=== PATIENT | female | born 1945 | race Hispanic/Latino ===

== ENCOUNTER 2023-09-13 11:48 | Emergency (ER) | payer OTHER ==
--- OUTSIDE RECORDS SUMMARY | 2023-09-13 11:53 | XMS REPORT | Continuity of Care Document ---
:1945 Author Organization [facility] t Address [address] [facility] [address] [place] [id number] Care Team Providers Name Role Phone Mary Patricio Attending Clinician Dulce Maria Pitts MD Attending Clinician Carolyne Mccall MD Attending Clinician Dalia Diaz MD Attending Clinician DALIA DIAZ Attending Clinician Unavailable NELSON STILES Attending Clinician Unavailable FARAZ MILES Attending Clinician Unavailable JUAN KEYS Attending Clinician Unavailable Darlene Scanlon MD Attending Clinician Valorie iVgil Attending Clinician Payam Faye MD Attending Clinician CAROLYNE MCCALL Attending Clinician Unavailable MARY PATRICIO Attending Clinician Unavailable DULCE MARIA PITTS Admitting Clinician Unavailable Payers Payer Name Policy Type Policy Number Effective Date Expiration Date S tani [employer] MEDICARE [id number] 2022 ADV 00:00:00 Problems Condition Condition Condition Status Onset Resolution Last Treating Co mments Source Name Details Category Date Date Treatment Clinician Date Hiatal Hiatal Disease Active 2022-[address] [facility] [address] [facility] 0[facility]13 [facility] Acute Acute Disease Active [facility] respirator respirator Lupe kes y y Medical insufficie insufficie Ce nter ncy, ncy, postoperat postoperat michael michael Primary Primary Disease Active [facility] hypertensi hypertensi [facility] kes [facility] Allergies, Adverse Reactions, Alerts Allergy Allergy Status Severity Reaction(s) Onset Inactive Treating Comm ents Source Name Type Date Date Clinician PENICILL Allergy Active 2022-[address] IN 0-13 [facility] 00 Center Penicill Propensi Active 2022-[address] in ty to 0-13 ed/dizzy [facility] adverse 00:00: Medical reaction 00 Center s Social History Social Habit Start Date Stop Date Quantity Comments Source History [facility] Non-Med Medical [facility] Alcohol intake 2023-09-04 2023-09-04 Ex-drinker [facility] 00:00:00 00:00:00 (finding) Medical Center Exposure to 2023-08-21 2023-08-[address] [facility] SARS-CoV-2 (event) 00:00:00 00:51:00 Medica l Center History [facility] 2023-08-31 2023-08-[address] [facility] Transport Med 00:00:00 00:00:[address] [facility] 2023-08-31 2023-08-[address] [facility] Housing Unable to 00:00:00 00:00:00 Medical Center Pay History [facility] 2023-08-31 2023-08-[address] [facility] Housing Places 00:00:00 00:00:00 Medical Ce nter Lived History [facility] 2023-08-31 2023-08-[address] [facility] Housing Homeless 00:00:00 00:00:00 Medical Center Last Year Tobacco use and 2023-08-31 2023-08-[address] [facility] exposure 00:00:00 00:00:00 non-user Medical Center Sex Assigned At [address] [address] Lupe kes 00:00:00 00:00:00 Medical Center Smoking Status Start Date Stop Date Source Never smoked tobacco [facility] Medications Ordered Filled Start Stop Current Ordering Indication Dosage Frequency Signature Comments Components Source Medication Medication Date Date Medication? Clinician (SIG) Name Name citalopram 2022-11 Yes 10mg QD Take 1 [facility] (CeleXA) 10 0-18 tablet (10 Lupe kes MG tablet 18:15: mg total) Med ical 13 by mouth Center daily. simethicone 2022-11- Yes 80mg Take [address] (MYLICON) 0-18 10- tablet (80 Adonay es 80 MG 00:00: 23:59 mg total) Medica l chewable 00 :00 by mouth Center tablet every 8 (eight) hours as needed for Flatulence for up to 10 days. traMADoL 2022-11- Yes 50mg Take [address] (ULTRAM) 50 0-18 - tablet (50 L ukes mg tablet 00:00: 23:59 mg total) Me dical 00 :00 by mouth 2 Center (two) times daily as needed for up to 10 days. Max Daily Amount: 100 mg promethazin 2022-11- Yes 25mg Take [address] [facility] [facility] e 0-18 - tablet (25 [facility] (PHENERGAN) 00:00: 23:59 mg total) Medical 25 MG 00 :00 by mouth 2 Center tablet (two) times daily as needed for Nausea for up to 10 days. ondansetron 2022-11- No 4mg Take [address] (ZOFRAN) 4 0-18 - tablet (4 Adonay es MG tablet 00:00: 00:00 mg total) Me dical 00 :00 by mouth 2 Center (two) times daily as needed for Nausea for up to 10 days. metoprolol Yes 25mg QD Take 1 [facility] t succinate 9-08 tablet (25 Luke s (TOPROL-XL) 00:00: mg total) M edical 25 MG 24 hr 00 by mouth Cent er tablet daily. lisinopril- 2022- No 1{tbl} QD Take [address] hydroCHLORO 8-03 10-18 tablet by Lupe radha thiazide 00:00: 00:00 mouth Medical (PRINZIDE,Z 00 :00 daily. [place] ESTORETIC) 20-12.5 mg per tablet citalopram 2022- No [address] (CeleXA) 10 4-21 10-13 Orally [facility] MG tablet 00:00: 00:00 Once a day M edical 00 :00 for 30 Center days Vital Signs Vital Name Observation Time Observation Value Comments Source WEIGHT 2023-09-03 06:00:00 55.838 kg WEIGHT 2023-09-02 09:00:00 55.656 kg HEIGHT 2023-08-31 01:13:00 149.9 cm WEIGHT 2023-08-31 00:00:00 58.832 kg WEIGHT 2023-09-03 06:00:00 55.838 kg WEIGHT 2023-09-02 09:00:00 55.656 kg HEIGHT 2023-08-31 01:13:00 149.9 cm WEIGHT 2023-08-31 00:00:00 58.832 kg WEIGHT 2023-09-03 06:00:00 55.838 kg WEIGHT 2023-09-02 09:00:00 55.656 kg HEIGHT 2023-08-31 01:13:00 149.9 cm WEIGHT 2023-08-31 00:00:00 58.832 kg Heart rate 2023-09-05 12:38:00 92 /min [facility] Respiratory rate 2023-09-05 12:38:00 18 /min [facility] Oxygen saturation in 2023-09-05 12:38:00 94 /min [facility] Arterial blood by Medical Ce nter Pulse oximetry Systolic blood 2023-09-05 11:59:00 122 mm[Hg] [facility] Diastolic blood 2023-09-05 11:59:00 58 mm[Hg] [facility] Body temperature 2023-09-05 11:59:00 36.72 Meera [facility] Body weight 2023-09-03 06:00:00 55.838 kg [facility] BMI 2023-09-03 06:00:00 24.86 kg/m2 [facility] Body height 2023-08-31 01:13:00 149.9 cm [facility] Procedures Procedure Date / Time Performed Performing Clinician Sour e POCT-GLUCOSE METER 2023-09-05 11:56:00 DiazDalia lord [facility] POCT-GLUCOSE METER 2023-09-05 07:41:00 [facility] XR CHEST 1 VIEW PORTABLE 2023-09-05 05:45:00 Nelson Stiles [facility] BASIC METABOLIC PANEL 2023-09-05 04:08:00 Nelson Stiles [facility] CBC (HEMOGRAM ONLY) 2023-09-05 04:08:00 Nelson Stiles [facility] MAGNESIUM 2023-09-05 04:08:00 Nelson Stiles [facility] POCT-GLUCOSE METER 2023-09-04 20:55:00 Dalia Diaz [facility] POCT-GLUCOSE METER 2023-09-04 15:05:00 Carolyne Mccall [facility] XR CHEST 1 VIEW PORTABLE 2023-09-04 10:15:28 Nelson Stiles [facility] [place] ESOPHAGUS 2023-09-04 10:11:00 [facility] BLOOD GAS, ARTERIAL 2023-09-04 05:30:00 [facility] MAGNESIUM 2023-09-04 05:26:00 [facility] 2023-09-04 05:26:00 [facility] BASIC METABOLIC PANEL 2023-09-04 05:26:00 [facility] (HE[facility] ONLY) 2023-09-04 05:26:00 Nelson Stiles [facility] XR CHEST 1 VIEW PORTABLE 2023-09-04 00:48:00 Nelson Stiles [facility] PHOSPHORUS 2023-09-03 23:20:00 [facility] BASIC METABOLIC PANEL 2023-09-03 23:20:00 [facility] (HEMOGRAM ONLY) 2023-09-03 23:20:00 Nelson Stiles [facility] MAGNESIUM 2023-09-03 23:20:00 [facility] POCT-GLUCOSE METER 2023-09-03 22:08:00 Carolyne Mccall [facility] XR CHEST 1 VIEW PORTABLE 2023-09-03 21:25:00 [facility] Center BLOOD GAS, ARTERIAL 2023-09-03 21:18:00 [facility] RRL CRITICAL LABS 2023-09-03 21:17:00 [facility] (ABG,NA,K,H&H,GLUCOSE) Medical C enter CALCIUM, IONIZED 2023-09-03 21:17:00 [facility] LACTIC ACID, ARTERIAL 2023-09-03 21:17:00 [facility] SODIUM NA-STAT LAB 2023-09-03 21:17:00 [facility] POTASSIUM-STAT LAB 2023-09-03 21:17:00 [facility] GLUCOSE-STAT LAB 2023-09-03 21:17:00 [facility] HGB/HCT (H&H) - STAT LAB 2023-09-03 21:17:00 [facility] SODIUM NA-STAT LAB 2023-09-03 19:54:00 Darlene Scanlon [facility] POTASSIUM-STAT LAB 2023-09-03 19:54:00 Darlene Scanlon [facility] GLUCOSE-STAT LAB 2023-09-03 19:54:00 Darlene Scanlon [facility] HGB/HCT (H&H) - STAT LAB 2023-09-03 19:54:00 Darlene Scanlon [facility] RRL CRITICAL LABS 2023-09-03 19:52:00 Darlene Scanlon [facility] (ABG,NA,K,H&H,GLUCOSE) Medical C enter BLOOD GAS, ARTERIAL 2023-09-03 19:52:00 Darlene Scanlon [facility] RRL CRITICAL LABS 2023-09-03 18:03:26 Leandro Nelson [facility] (ABG,NA,K,H&H,GLUCOSE) Medical C enter CALCIUM, IONIZED 2023-09-03 18:03:26 Leandro Nelson [facility] BLOOD GAS, ARTERIAL 2023-09-03 18:03:26 Leandro Nelson Rub[facility] SODIUM NA-STAT LAB 2023-09-03 18:03:26 Leandro Nelson Rubin [facility] POTASSIUM-STAT LAB 2023-09-03 18:03:26 Danielle Nelsonshua Rubin [facility] GLUCOSE-STAT LAB 2023-09-03 18:03:26 Danielle Nelsonshua [facility] HGB/HCT (H&H) - STAT LAB 2023-09-03 18:03:[address] [facility] RRL CRITICAL LABS 2023-09-03 17:08:20 Leandro Nelson [facility] (ABG,NA,K,H&H,GLUCOSE) Medical C enter CALCIUM, IONIZED 2023-09-03 17:08:20 Danielle Nelsonshua Rubin [facility] BLOOD GAS, ARTERIAL 2023-09-03 17:08:20 Leandro Nelson [facility] SODIUM NA-STAT LAB 2023-09-03 17:08:20 Leandro Nelson Rubin [facility] POTASSIUM-STAT LAB 2023-09-03 17:08:20 Leandro Nelson [facility] GLUCOSE-STAT LAB 2023-09-03 17:08:20 Danielle Nelsonshua [facility] HGB/HCT (H&H) - STAT LAB 2023-09-03 17:08:[address] [facility] ROBOTIC 2023-09-03 15:02:00 Payam Faye [facility] St Urias es LAPAROSCOPY,HERNIORRHAPHY [facility] HIATAL EGD 2023-09-03 15:02:00 Payam Faye [facility] Adonay es (ESOPHAGOGASTRODUODENOSCO [facility] PY) BASIC METABOLIC PANEL 2023-09-03 04:59:00 [facility] CBC (HEMOGRAM ONLY) 2023-09-03 04:59:00 [facility] MAGNESIUM 2023-09-03 04:59:00 [facility] POCT-GLUCOSE METER 2023-09-02 17:21:00 Cal [facility] ABORH, MANUAL 2023-09-02 09:53:00 Kayley Garcia [facility] TYPE AND SCREEN, 2023-09-02 08:21:00 Karyn [facility] PROTHROMBIN TIME/INR 2023-09-02 08:21:00 Karyn [facility] APTT 2023-09-02 08:21:00 Karyn [facility] BASIC METABOLIC PANEL 2023-09-02 00:45:00 [facility] CBC (HEMOGRAM ONLY) 2023-09-02 00:45:00 [facility] MAGNESIUM 2023-09-02 00:45:00 [facility] ECG 12-LEAD 2023-09-01 09:25:08 Cal [facility] ECG 12-LEAD 2023-09-01 09:25:08 Unknown, Hl7 [facility] ECG 12-LEAD 2023-09-01 09:24:46 Unknown, Hl7 [facility] BASIC METABOLIC PANEL 2023-09-01 04:41:00 [facility] CBC (HEMOGRAM ONLY) 2023-09-01 04:41:00 [facility] MAGNESIUM 2023-09-01 04:41:00 [facility] 2D ECHO W/ DOPPLER 2023-08-31 17:13:44 Ac Bill [facility] (CW/PW/COLOR) [facility] [place] UPPER GI WITH AIR 2023-08-31 15:45:00 Carolyne Mccall [facility] CONTRAST Medical Center XR CHEST 1 VIEW PORTABLE 2023-08-31 13:45:00 [facility]ccall [facility] CBC W/PLT COUNT & AUTO 2023-08-31 12:23:00 Payam Faye [facility] DIFFERENTIAL [facility] CBC W/PLT COUNT & AUTO 2023-08-31 12:23:00 Payam Faye [facility] DIFFERENTIAL [facility] CBC W/PLT COUNT & AUTO 2023-08-31 05:18:00 Dulce Maria Pitts [facility] DIFFERENTIAL [facility] CBC W/PLT COUNT & AUTO 2023-08-31 05:18:00 Dulce Maria Pitts [facility] COMPREHENSIVE METABOLIC 2023-08-31 05:18:00 Dulce Maria Pitts [facility] EKG-SCANNED 2023-08-31 00:00:00 Provider, Moses [facility] Scanning [facility] Plan of Care Planned Activity Planned Date Details Comments Source Future Scheduled 2024-08-[address] [facility] Test 00:00:00 [facility]ing [facility] Medical Cente r Screening (12+) [code = Tobacco Cessation Counseling and Screening (12+)] Future Scheduled 2023-07-20 Influenza Vaccine (#1) [facility] Test 00:00:00 [code = Influenza Medical Ce nter Vaccine (#1)] Future Scheduled 2022-11-[address] [facility] Test 00:00:00 (12+) [code = Medical Center DEPRESSION SCREENING (12+)] Future Scheduled 2022-11-19 FALLS RISK SCREENING [facility] Test 00:00:00 [code = FALLS RISK Medical C enter SCREENING] Future Scheduled 2022-11-19 Medicare IPPE (WELCOME [facility] Test 00:00:00 TO MEDICARE) [code = Medical Center Medicare IPPE (WELCOME TO MEDICARE)] Future Scheduled 1997 SHINGLES VACCINES ([address] [facility] Test 00:00:00 of 2) [code = SHINGLES Medic al Center VACCINES (1 of 2)] Future Scheduled 1966 DTAP/TDAP/TD VACCINES [facility] Test 00:00:00 (1 - Tdap) [code = Medical C enter DTAP/TDAP/TD VACCINES (1 - Tdap)] Future Scheduled 1965 HEPATITIS C SCREENING [facility] Test 00:00:00 [code = HEPATITIS C Medical Center SCREENING] Future Scheduled 1953 PNEUMOCOCCAL 65+ YRS [facility] Test 00:00:00 (1 - PCV) [code = Medical Ce nter PNEUMOCOCCAL 65+ YRS (1 - PCV)] Future Scheduled 1948[birth year]02-22 COVID-19 VACCINE (#1) [facility] Test 00:00:00 [code = COVID-[address] VACCINE (#1)] Future Scheduled 1945 DXA SCAN [code = DXA [facility] Test 00:00:00 SCAN] Medical Center Encounters Start End Encounter Admission Attending Care Care Encounter Source Date/Time Date/Time Type Type Clinicians Facility Department ID 2023-08-31 Inpatient [facility] [id number] [facility] 13:17:44 2023-08-31 2023-09-05 [facility] [id number] [facility] 00:17[facility]00 16:22:00 Encounter Dulce Maria Pitts Jamuna M edical Khan, Shamis Camille ter 2023-08-31 2023-09-05 Inpatient DIAZ [facility] Surgery [id number] SLE 00:17:00 16:22:00 [facility] 2023-09-05 2023-09-05 Outpatient [facility] [id number] SLE 00:07:12 00:07:12 [place] 2023-09-04 2023-09-04 Outpatient [facility] [id number] SLE 09:41:14 09:41:14 [place] 2023-09-04 2023-09-04 Outpatient [facility] [id number] SLE 09:40:54 09:40:54 FARAZ 2023-09-04 2023-09-04 Outpatient [facility] [id number] [facility] 00:03:24 00:03:24 2023-09-03 2023-09-03 Outpatient [facility] [id number] SLE 21:11:11 21:11:11 JUAN 2023-09-03 2023-09-03 Anesthesia Darlene Scanlon [facility] [id number] [facility] St 15:02:00 19:30:00 Event Valorie Vigil [facility] 2023-09-03 2023-09-03 Surgery Yunier [facility] [id number] [facility] St 14:04:00 16:47:00 [facility] 2023-09-03 2023-09-03 Outpatient [facility] [id number] SLE 00:00:00 00:00:00 2023-09-01 2023-09-01 Orders [facility] [id number] [facility] 00:00:00 00:00:00 [facility] 2023-08-31 2023-08-31 Outpatient [facility] [id number] SLE 12:24:45 12:24:45 [facility] 2023-08-31 2023-08-31 Outpatient [facility] [id number] SLE 11:08:30 11:08:30 [facility] 2023-08-31 2023-08-31 Travel [facility] [id number] [facility] 00:00:00 00:00:00 [facility] Results Test Description Test Time Test Comments Results Result Sour e Comments XR CHEST 1 VIEW 2023-09-05 / 13:23:28 [facility] 1945 Sex: F CLINICAL HISTORY: s/p nissenTECHNIQUE: 1 view of the chest.COMPARISON: 09/04/2023IMPRESSION:Nirav ateral chest wall subcutaneous emphysema appears decreased. Tracebiapical pneumothoraces cannot be excluded. There is slightly increasedbibasilar atelectasis. Blunting of left costophrenic angle is noted. Nosignificant cardiomegaly is seen.Electronically Signed By: Tyree Llanos09/05/2023 13:25 CDTWorkstation Name: [id number] POC-Glucose meter 2023-09-05 12:07:36 Test Item Value Reference Range Interpretation Comme nts POC-Glucose Meter (test code = 117 mg/dL 70-110 H : [facility] [address] [facility] 1538) [facility], 770 30: Thread Drawer/Techni barbi ID = [id number] for Marie Tapia a Lab Interpretation (test code = Abnormal 55692-3) [facility] [id number] 12:07:36 Test Item Value Reference Range Interpretation Comments POC-GLUCOSE METER 117 mg/dL 70-110 H : [facility] (BEAKER) (test code = [facility] Aura [facility], 1538) [address]: Thread Drawer/Techni barbi ID = [id number] for Aria King POCT-GLUCOSE [id number] 07:52:52 Test Item Value Reference Range Interpretation Comments POC-GLUCOSE METER 92 mg/dL 70-110 : TESTED A T [facility] 67[address] (BEAKER) (test code = [facility], 1538) [address]: Thread Drawer/Techni barbi ID = [id number] for Aria Bennett [id number] 04:41:43 Test Item Value Reference Range Interpretation Comments MAGNESIUM (BEAKER) (test code = 2.2 mg/dL 1.6-2.6 627) Thread Drawer ID - BSBASI METABOLIC [id number] 04:41:42 Test Item Value Reference Range Interpretation Comments SODIUM (BEAKER) 141 meq/L 136-145 (test code = 381) POTASSIUM 3.6 meq/L 3.5-5.1 (BEAKER) (test code = 379) CHLORIDE (BEAKER) 109 meq/L 98-107 H (test code = 382) CO2 (BEAKER) 25 meq/L 22-29 (test code = 355) BLOOD UREA 10 mg/dL 7-21 NITROGEN (BEAKER) (test code = 354) CREATININE 0.74 mg/dL 0.57-1.25 (BEAKER) (test code = 358) GLUCOSE RANDOM 98 mg/dL 70-105 (BEAKER) (test code = 652) CALCIUM (BEAKER) 8.7 mg/dL 8.4-10.2 (test code = 697) EGFR (BEAKER) 84 Interpretatio n of eGFR (test code = mL/min/1.73 values Stage De scription 1092) sq m Result G1 Ivy l or high >=90 G2 Mildly decreased 60-89 G3a Mildl y to moderately 45-5 9 G3b Moderately to s everely 30-44 G4 Sever ly decreased 15-29 G5 Kidney failure <15Repo rted eGFR is based on the CKD-EPI 2020 equation t hat does not use a race coefficientEsti mated GFR is not as accur ate as Creatinine Rukhsana trang in predicting glom erular filtration rate . Estimated GFR is not appl icable for dialysis patien ts Thread Drawer ID - [id number] (HEMOGRAM ONLY)2023-09-05 04:18:31 Test Item Value Reference Range Interpretation Comments WHITE BLOOD CELL COUNT (BEAKER) 12.8 K/ L 3.5-10.5 H (test code = 775) RED BLOOD CELL COUNT (BEAKER) 3.45 M/ L 3.93-5.22 L (test code = 761) HEMOGLOBIN (BEAKER) (test code = 10.5 GM/DL 11.2-15.7 L 410) HEMATOCRIT (BEAKER) (test code = 31.6 % 34.1-44.9 L 411) MEAN CORPUSCULAR VOLUME (BEAKER) 92 fL 79-95 (test code = 753) MEAN CORPUSCULAR HEMOGLOBIN 30.4 pg 25.6-32.2 (BEAKER) (test code = 751) MEAN CORPUSCULAR HEMOGLOBIN CONC 33.2 GM/DL 32.2-35.5 (BEAKER) (test code = 752) RED CELL DISTRIBUTION WIDTH 13.1 % 11.7-14.4 (BEAKER) (test code = 412) PLATELET COUNT (BEAKER) (test 250 K/CU MM 150-450 code = 756) MEAN PLATELET VOLUME (AKER) 8.7 fL 9.4-12.3 L (test code = 754) NUCLEATED RED BLOOD CELLS 0 /100 WBC 0-0 (BEAKER) (test code = 413) POCT-GLUCOSE [id number] 21:06:57 Test Item Value Reference Range Interpretation Comments POC-GLUCOSE METER 143 mg/dL 70-110 H : TESTED A T [facility] 6720 (BEAKER) (test code = [facility], 1538) [address]: Thread Drawer/Techni barbi ID = [id number] for Ml Chao POCT-GLUCOSE [id number] 15:17:22 Test Item Value Reference Range Interpretation Comments POC-GLUCOSE METER 118 mg/dL 70-110 H : TESTED A T [facility] 6720 (BEAKER) (test code = [facility], 1538) [address]: Thread Drawer/Techni barbi ID = [id number] for Thomas Godwin POCT-GLUCOSE [id number] 12:32:17 Test Item Value Reference Range Interpretation Comments POC-GLUCOSE METER 156 mg/dL 70-110 H : TESTED A T [facility] 6720 ([facility]) (test code [facility], = 1538) [address]: Thread Drawer/Techni barbi ID = [id number] for Miguel Angel reid ([facility])[place] [id number] 10:44:08 [facility] : 1945 Sex: FEXAM: Esophagram was performed with water soluble contrast.INDICATION: s/p jennifer. COMPARISON: None.FINDINGS/IMPRESSION:After ingestion of water-soluble contrast, contrast passes readily intothe stomach. No leak of contrast.Fluoroscopy time: 0.77 minutesNumber of images: 12Electronically Signed By: Mariusz Slona09/04/2023 10:46 CDTWorkstation Name: [id number] CHEST 1 VIEW PORTABLE / [id number] 10:19:58 [facility] : 1945 Sex: FCLINICAL HISTORY: ChT removal TECHNIQUE: 1 view of the chest.COMPARISON: 09/04/2023IMPRESSION:Left chest tube and NGT removal. Bilateral chest wall subcutaneousemphysema is again noted. There is no definite pneumothorax.No lobar consolidation or significant pleural fluid. No cardiomegaly. New oral contrast seen in the stomach.Electronically Signed By: Tyree Llanos09/04/2023 10:22 CDTWorkstation Name: [id number] CHEST 1 VIEW PORTABLE / [id number] 06:15:27 [facility] : 1945 Sex: FCLINICAL HISTORY: s/p nissenTECHNIQUE: 1 view of the chest.COMPARISON: 09/03/2023IMPRESSION:The supporting lines and tubes are similar appearing. Left asymmetricchest wall subcutaneous emphysema appears slightly decreased. A traceleft apical pneumothorax is again suspected. Bibasilar lung opacitiesand blunting of the costophrenic angles are again seen. No cardiomegaly.Electronically Signed By: Tyree Llanos09/04/2023 06:17 CDTWorkstation Name: [id number] 05:57:55 Test Item Value Reference Range Interpretation Comments MAGNESIUM (BEAKER) (test code = 2.4 mg/dL 1.6-2.6 627) Thread Drawer ID - [id number] 05:57:55 Test Item Value Reference Range Interpretation Comments PHOSPHORUS (BEAKER) (test code = 2.8 mg/dL 2.3-4.7 604) Thread Drawer ID - EMBASIC METABOLIC [id number] 05:57:54 Test Item Value Reference Range Interpretation Comments SODIUM (BEAKER) 135 meq/L 136-145 L (test code = 381) POTASSIUM 4.9 meq/L 3.5-5.1 (BEAKER) (test code = 379) CHLORIDE (BEAKER) 106 meq/L 98-107 (test code = 382) CO2 (BEAKER) 24 meq/L 22-29 (test code = 355) BLOOD UREA 9 mg/dL 7-21 NITROGEN (BEAKER) (test code = 354) CREATININE 0.68 mg/dL 0.57-1.25 (BEAKER) (test code = 358) GLUCOSE RANDOM 146 mg/dL 70-105 H (BEAKER) (test code = 652) CALCIUM (BEAKER) 8.3 mg/dL 8.4-10.2 L (test code = 697) EGFR (BEAKER) 90 Interpretatio n of eGFR (test code = mL/min/1.73 values Stage De scription 1092) sq m Result G1 Ivy l or high >=90 G2 Mildly decreased 60-89 G3a Mildl y to moderately 45-5 9 G3b Moderately to s everely 30-44 G4 Severl y decreased 15-29 G5 Kidney failure <15Reported eGF R is based on the CKD-EPI 2020 equation that d oes not use a race coefficientEsti mated GFR is not as accur ate as Creatinine Rukhsana costello in predicting glom erular filtration rate . Estimated GFR is not appl icable for dialysis patien ts Thread Drawer ID - EMCBC (HEMOGRAM ONLY)2023-09-04 05:42:44 Test Item Value Reference Range Interpretation Comments WHITE BLOOD CELL COUNT (BEAKER) 19.4 K/ L 3.5-10.5 H (test code = 775) RED BLOOD CELL COUNT (BEAKER) 3.55 M/ L 3.93-5.22 L (test code = 761) HEMOGLOBIN (BEAKER) (test code = 10.6 GM/DL 11.2-15.7 L 410) HEMATOCRIT (BEAKER) (test code = 31.9 % 34.1-44.9 L 411) MEAN CORPUSCULAR VOLUME (BEAKER) 90 fL 79-95 (test code = 753) MEAN CORPUSCULAR HEMOGLOBIN 29.9 pg 25.6-32.2 (BEAKER) (test code = 751) MEAN CORPUSCULAR HEMOGLOBIN CONC 33.2 GM/DL 32.2-35.5 (BEAKER) (test code = 752) RED CELL DISTRIBUTION WIDTH 12.4 % 11.7-14.4 (BEAKER) (test code = 412) PLATELET COUNT (BEAKER) (test 294 K/CU MM 150-450 code = 756) MEAN PLATELET VOLUME (BEAKER) 8.7 fL 9.4-12.3 L (test code = 754) NUCLEATED RED BLOOD CELLS 0 /100 WBC 0-0 (BEAKER) (test code = 413) Blood gas, [id number] 05:40:17 Test Item Value Reference Range Interpretation Comments pH, Arterial (test code 7.45 7.35-7.45 = 2744-1) pCO2, Arterial (test 35 See_Comment [Autom ated code = 2019-) message] The system which generated this result transmitted reference range : 35 - 45 mm Hg. The reference range was not used to interpret this result as normal/abnormal . pO2, Arterial (test 179 See_Comment H [Automa jose code = 2703-7) message] The system which generated this result transmitted reference range : 80 - 90 mm Hg. The reference range was not used to interpret this result as normal/abnormal . O2 Sat, Arterial (test 99.3 % 96.0-97.0 H code = 2708-6) HCO3, Arterial (test 24 mmol/L 21-29 code = 1960-4) Base Excess, Arterial -0.3 mmol/L -2.0-3.0 (test code = 1925-7) Patient Temperature 36.5 (test code = 8310-5) FIO2 (test code = 1819) 28.0 Lab Interpretation Abnormal (test code = 16431-2) [facility], [id number] 05:40:17 Test Item Value Reference Range Interpretation Comments PH ARTERIAL (BEAKER) (test code = 7.45 7.35-7.45 383) PCO2 ARTERIAL (BEAKER) (test code 35 mm Hg 35-45 = 384) PO2 ARTERIAL (BEAKER) (test code 179 mm Hg 80-90 H = 385) O2 SATURATION ARTERIAL (BEAKER) 99.3 % 96.0-97.0 H (test code = 386) HCO3 ARTERIAL (BEAKER) (test code 24 mmol/L -29 = 388) BASE EXCESS ARTERIAL (BEAKER) -0.3 mmol/L -2.0-3.0 (test code = 387) PATIENT TEMPERATURE (BEAKER) 36.5 (test code = 1818) FIO2 (BEAKER) (test code = 1819) 28.0 BASIC METABOLIC [id number] 23:55:58 Test Item Value Reference Range Interpretation Comments SODIUM (BEAKER) 137 meq/L 136-145 (test code = 381) POTASSIUM 3.5 meq/L 3.5-5.1 Specimen slight ly (BEAKER) (test hemolyzed code = 379) CHLORIDE (BEAKER) 104 meq/L 98-107 (test code = 382) CO2 (BEAKER) 20 meq/L 22-29 L (test code = 355) BLOOD UREA 8 mg/dL 7-21 NITROGEN (BEAKER) (test code = 354) CREATININE 0.66 mg/dL 0.57-1.25 Specimen slight ly (BEAKER) (test hemolyzed code = 358) GLUCOSE RANDOM 146 mg/dL 70-105 H (BEAKER) (test code = 652) CALCIUM (BEAKER) 8.7 mg/dL 8.4-10.2 (test code = 697) EGFR (BEAKER) 91 Interpretatio n of eGFR (test code = mL/min/1.73 values Stage De scription 1092) sq m Result G1 Ivy l or high >=90 G2 Mildly decreased 60-89 G3a Mildl y to moderately 45-5 9 G3b Moderately to s everely 30-44 G4 Severl y decreased 15-29 G5 Kidney failure <15Reported eGF R is based on the CKD-EPI 2020 equation that d oes not use a race coefficientEsti mated GFR is not as accur ate as Creatinine Rukhsana trang in predicting glom erular filtration rate . Estimated GFR is not appl icable for dialysis patien ts Thread Drawer ID - [id number] 23:55:57 Test Item Value Reference Range Interpretation Comments MAGNESIUM (BEAKER) 1.7 mg/dL 1.6-2.6 Specimen slightly (test code = 627) hemolyzed Thread Drawer ID - [id number] 23:55:57 Test Item Value Reference Range Interpretation Comments PHOSPHORUS (BEAKER) 3.7 mg/dL 2.3-4.7 Specimen slightly (test code = 604) hemolyzed Thread Drawer ID - BSCBC (HEMOGRAM ONLY)2023-09-03 23:35:58 Test Item Value Reference Range Interpretation Comments WHITE BLOOD CELL COUNT (BEAKER) 20.3 K/ L 3.5-10.5 H (test code = 775) RED BLOOD CELL COUNT (BEAKER) 3.68 M/ L 3.93-5.22 L (test code = 761) HEMOGLOBIN (BEAKER) (test code = 11.7 GM/DL 11.2-15.7 410) HEMATOCRIT (BEAKER) (test code = 33.6 % 34.1-44.9 L 411) MEAN CORPUSCULAR VOLUME (BEAKER) 91 fL 79-95 (test code = 753) MEAN CORPUSCULAR HEMOGLOBIN 31.8 pg 25.6-32.2 (BEAKER) (test code = 751) MEAN CORPUSCULAR HEMOGLOBIN CONC 34.8 GM/DL 32.2-35.5 (BEAKER) (test code = 752) RED CELL DISTRIBUTION WIDTH 12.4 % 11.7-14.4 (BEAKER) (test code = 412) PLATELET COUNT (BEAKER) (test 275 K/CU MM 150-450 code = 756) MEAN PLATELET VOLUME (BEAKER) 8.6 fL 9.4-12.3 L (test code = 754) NUCLEATED RED BLOOD CELLS 0 /100 WBC 0-0 (BEAKER) (test code = 413) XR CHEST 1 VIEW PORTABLE / [id number] 23:24:53 [facility]ISABELLA Chavarria : 1945 Sex: FEXAM: XR CHEST 1 VIEW PORTABLE / BEDSIDECLINICAL INFORMATION: Post-op, s/p left chest tube placementCOMPARISON: 08/31/2023FINDINGS/IMPRESSION:Transesophageal gastric tube tip in distal side-port project over thestomach. Trace left pneumothorax.No focal consolidation. No sizable pleural fluid collection.The cardiac silhouette and mediastinal contours are stable.No acute bony abnormality. Moderate subcuta neous emphysema in thebilateral chest wall, new since the comparison study.Electronically Signed By:Sandi Craig09/03/2023 23:26 CDTWorkstation Name: [id number] Acid, [id number] 21:37:24 Test Item Value Reference Range Interpretation Comments Lactate, Art (test 0.8 mmol/L 0.5-2.0 Specimen code = 2874) slightly hemolyzed ANSHUL (test code = ANSHUL) Thread Drawer ID - BS Lab Interpretation Normal (test code = 08160-6) [facility]LACT[facility] ACID, [id number] 21:37:24 Test Item Value Reference Range Interpretation Comments LACTATE BLOOD 0.8 mmol/L 0.5-2.0 Specimen sligh tly ARTERIAL (2) (BEAKER) hemoly zed (test code = 2874) Thread Drawer ID - BSBLOOD GAS, [id number] 21:31:15 Test Item Value Reference Range Interpretation Comments PH ARTERIAL (BEAKER) (test code = 7.40 7.35-7.45 383) PCO2 ARTERIAL (BEAKER) (test code 38 mm Hg 35-45 = 384) PO2 ARTERIAL (BEAKER) (test code 101 mm Hg 80-90 H = 385) O2 SATURATION ARTERIAL (BEAKER) 97.6 % 96.0-97.0 H (test code = 386) HCO3 ARTERIAL (BEAKER) (test code 23 mmol/L 21-29 = 388) BASE EXCESS ARTERIAL (BEAKER) -1.7 mmol/L -2.0-3.0 (test code = 387) PATIENT TEMPERATURE (BEAKER) 37.0 (test code = 1818) FIO2 (BEAKER) (test code = 1819) 44.0 Potassium-Stat [id number] 21:29:46 Test Item Value Reference Range Interpretation Comments Potassium (test code = 2823-3) 3.4 meq/L 3.6-5.5 L Lab Interpretation (test code = Abnormal 70746-7) [facility] CenterPOTASSIUM-STAT [id number] 21:29:46 Test Item Value Reference Range Interpretation Comments POTASSIUM (BEAKER) (test code = 3.4 meq/L 3.6-5.5 L 379) CALCIUM, [id number] 21:29:45 Test Item Value Reference Range Interpretation Comments CALCIUM IONIZED (BEAKER) (test 1.10 mmol/L 1.12-1.27 L code = 698) PH, BLOOD (BEAKER) (test code = 7.40 1810) HGB/HCT (H&H)-Stat [id number] 21:28:27 Test Item Value Reference Range Interpretation Comments Hemoglobin (test code = 12.2 See_Comment [Au tomated message] 718-7) The system TM3 Software generated this result transmitted ref erence range: 12.0 - 1 5.0 GM/DL. The refe rence range was not u sed to interpret this result as normal/abnor mal. Hematocrit (test code = 36.0 % 36.0-45.0 1426-3) Lab Interpretation (test Normal code = 97495-9) [facility] [id number] 21:28:27 Test Item Value Reference Range Interpretation Comments Sodium (test code = 2951-2) 137 meq/L 136-145 Lab Interpretation (test code = Normal 45293-5) [facility] [id number] 21:28:27 Test Item Value Reference Range Interpretation Comments SODIUM (BEAKER) (test code = 381) 137 meq/L 136-145 HGB/HCT (H&H) - STAT [id number] 21:28:27 Test Item Value Reference Range Interpretation Comments HEMOGLOBIN (BEAKER) (test code = 12.2 GM/DL 12.0-15.0 410) HEMATOCRIT (BEAKER) (test code = 36.0 % 36.0-45.0 411) Glucose-Stat [id number] 21:28:26 Test Item Value Reference Range Interpretation Comments Glucose (test code = 2345-7) 146 mg/dL 70-110 H Lab Interpretation (test code = Abnormal 64722-9) [facility]GLUCOSE-STAT [id number] 21:28:26 Test Item Value Reference Range Interpretation Comments GLUCOSE RANDOM (BEAKER) (test code 146 mg/dL 70-110 H = 652) BLOOD GAS, [id number] 20:13:48 Test Item Value Reference Range Interpretation Comments PH ARTERIAL (BEAKER) (test code = 7.30 7.35-7.45 L 383) PCO2 ARTERIAL (BEAKER) (test code 49 mm Hg 35-45 H = 384) PO2 ARTERIAL (BEAKER) (test code 83 mm Hg 80-90 = 385) O2 SATURATION ARTERIAL (BEAKER) 95.2 % 96.0-97.0 L (test code = 386) HCO3 ARTERIAL (BEAKER) (test code 24 mmol/L 21-29 = 388) BASE EXCESS ARTERIAL (BEAKER) -3.3 mmol/L -2.0-3.0 L (test code = 387) PATIENT TEMPERATURE (BEAKER) 36.7 (test code = 1818) FIO2 (BEAKER) (test code = 1819) 44.0 POTASSIUM-STAT [id number] 20:12:59 Test Item Value Reference Range Interpretation Comments POTASSIUM (BEAKER) (test code = 3.8 meq/L 3.6-5.5 379) HGB/HCT (H&H) - STAT [id number] 20:12:59 Test Item Value Reference Range Interpretation Comments HEMOGLOBIN (BEAKER) (test code = 12.6 GM/DL 12.0-15.0 410) HEMATOCRIT (BEAKER) (test code = 37.0 % 36.0-45.0 411) GLUCOSE-STAT [id number] 20:12:58 Test Item Value Reference Range Interpretation Comments GLUCOSE RANDOM (BEAKER) (test code 148 mg/dL 70-110 H = 652) SODIUM NA-STAT [id number] 20:12:58 Test Item Value Reference Range Interpretation Comments SODIUM (BEAKER) (test code = 381) 136 meq/L 136-145 BLOOD GAS, [id number] 18:09:21 Test Item Value Reference Range Interpretation Comments PH ARTERIAL (BEAKER) (test code = 7.28 7.35-7.45 L 383) PCO2 ARTERIAL (BEAKER) (test code 48 mm Hg 35-45 H = 384) PO2 ARTERIAL (BEAKER) (test code 139 mm Hg 80-90 H = 385) O2 SATURATION ARTERIAL (BEAKER) 98.5 % 96.0-97.0 H (test code = 386) HCO3 ARTERIAL (BEAKER) (test code 22 mmol/L 21-29 = 388) BASE EXCESS ARTERIAL (BEAKER) -4.7 mmol/L -2.0-3.0 L (test code = 387) PATIENT TEMPERATURE (BEAKER) 36.0 (test code = 1818) FIO2 (BEAKER) (test code = 1819) 52.0 HGB/HCT (H&H) - STAT [id number] 18:09:21 Test Item Value Reference Range Interpretation Comments HEMOGLOBIN (BEAKER) (test code = 11.3 GM/DL 12.0-15.0 L 410) HEMATOCRIT (BEAKER) (test code = 33.0 % 36.0-45.0 L 411) CALCIUM, [id number] 18:09:20 Test Item Value Reference Range Interpretation Comments CALCIUM IONIZED (BEAKER) (test 1.28 mmol/L 1.12-1.27 H code = 698) PH, BLOOD (BEAKER) (test code = 7.27 1810) POTASSIUM-STAT [id number] 18:09:04 Test Item Value Reference Range Interpretation Comments POTASSIUM (BEAKER) (test code = 4.4 meq/L 3.6-5.5 379) GLUCOSE-STAT [id number] 18:08:59 Test Item Value Reference Range Interpretation Comments GLUCOSE RANDOM (BEAKER) (test code 157 mg/dL 70-110 H = 652) SODIUM NA-STAT [id number] 18:08:59 Test Item Value Reference Range Interpretation Comments SODIUM (BEAKER) (test code = 381) 136 meq/L 136-145 CALCIUM, [id number] 17:16:13 Test Item Value Reference Range Interpretation Comments CALCIUM IONIZED (BEAKER) (test 1.51 mmol/L 1.12-1.27 H code = 698) PH, BLOOD (BEAKER) (test code = 7.26 0) BLOOD GAS, [id number] 17:16:13 Test Item Value Reference Range Interpretation Comments PH ARTERIAL (BEAKER) (test code = 7.28 7.35-7.45 L 383) PCO2 ARTERIAL (BEAKER) (test code 52 mm Hg 35-45 H = 384) PO2 ARTERIAL (BEAKER) (test code 126 mm Hg 80-90 H = 385) O2 SATURATION ARTERIAL (BEAKER) 98.2 % 96.0-97.0 H (test code = 386) HCO3 ARTERIAL (BEAKER) (test code 24 mmol/L 21-29 = 388) BASE EXCESS ARTERIAL (BEAKER) -3.7 mmol/L -2.0-3.0 L (test code = 387) PATIENT TEMPERATURE (BEAKER) 35.9 (test code = 1818) FIO2 (BEAKER) (test code = 1819) 100.0 HGB/HCT (H&H) - STAT [id number] 17:14:53 Test Item Value Reference Range Interpretation Comments HEMOGLOBIN (BEAKER) (test code = 12.3 GM/DL 12.0-15.0 410) HEMATOCRIT (BEAKER) (test code = 36.0 % 36.0-45.0 411) GLUCOSE-STAT [id number] 17:14:52 Test Item Value Reference Range Interpretation Comments GLUCOSE RANDOM (BEAKER) (test code 158 mg/dL 70-110 H = 652) SODIUM NA-STAT [id number] 17:14:52 Test Item Value Reference Range Interpretation Comments SODIUM (BEAKER) (test code = 381) 137 meq/L 136-145 POTASSIUM-STAT [id number] 17:14:52 Test Item Value Reference Range Interpretation Comments POTASSIUM (BEAKER) (test code = 3.5 meq/L 3.6-5.5 L 379) BASIC METABOLIC [id number] 07:04:52 Test Item Value Reference Range Interpretation Comments SODIUM (BEAKER) 139 meq/L 136-145 (test code = 381) POTASSIUM 3.5 meq/L 3.5-5.1 (BEAKER) (test code = 379) CHLORIDE (BEAKER) 108 meq/L 98-107 H (test code = 382) CO2 (BEAKER) 22 meq/L 22-29 (test code = 355) BLOOD UREA 10 mg/dL 7-21 NITROGEN (BEAKER) (test code = 354) CREATININE 0.69 mg/dL 0.57-1.25 (BEAKER) (test code = 358) GLUCOSE RANDOM 103 mg/dL 70-105 (BEAKER) (test code = 652) CALCIUM (BEAKER) 9.1 mg/dL 8.4-10.2 (test code = 697) EGFR (BEAKER) 90 Interpretatio n of eGFR (test code = mL/min/1.73 values Stage De scription 1092) sq m Result G1 Ivy l or high >=90 G2 Mildly decreased 60-89 G3a Mildl y to moderately 45-5 9 G3b Moderately to s everely 30-44 G4 Severl y decreased 15-29 G5 Kidney failure <15Reported eGF R is based on the CKD-EPI 2021 equation that d oes not use a race coefficientEsti mated GFR is not as accur ate as Creatinine Rukhsana costello in predicting glom erular filtration rate . Estimated GFR is not appl icable for dialysis patien ts Thread Drawer ID - [id number] 07:04:52 Test Item Value Reference Range Interpretation Comments MAGNESIUM (BEAKER) (test code = 1.8 mg/dL 1.6-2.6 627) Thread Drawer ID - BSCBC (HEMOGRAM ONLY)2023-09-03 06:27:25 Test Item Value Reference Range Interpretation Comments WHITE BLOOD CELL COUNT (BEAKER) 7.8 K/ L 3.5-10.5 (test code = 775) RED BLOOD CELL COUNT (BEAKER) 3.89 M/ L 3.93-5.22 L (test code = 761) HEMOGLOBIN (BEAKER) (test code = 11.7 GM/DL 11.2-15.7 410) HEMATOCRIT (BEAKER) (test code = 34.6 % 34.1-44.9 411) MEAN CORPUSCULAR VOLUME (BEAKER) 89 fL 79-95 (test code = 753) MEAN CORPUSCULAR HEMOGLOBIN 30.1 pg 25.6-32.2 (BEAKER) (test code = 751) MEAN CORPUSCULAR HEMOGLOBIN CONC 33.8 GM/DL 32.2-35.5 (BEAKER) (test code = 752) RED CELL DISTRIBUTION WIDTH 12.7 % 11.7-14.4 (BEAKER) (test code = 412) PLATELET COUNT (BEAKER) (test 309 K/CU MM 150-450 code = 756) MEAN PLATELET VOLUME (BEAKER) 9.0 fL 9.4-12.3 L (test code = 754) NUCLEATED RED BLOOD CELLS 0 /100 WBC 0-0 (BEAKER) (test code = 413) POCT-GLUCOSE [id number] 17:32:40 Test Item Value Reference Range Interpretation Comments POC-GLUCOSE METER 99 mg/dL 70-110 : TESTED A T [facility] 6720 (BEAKER) (test code = ALLAN RENNER, 1538) 00878: Thread Drawer/Techni barbi ID = [id number] for ZA CASTRO [id number] 08:40:28 Test Item Value Reference Range Interpretation Comments PARTIAL THROMBOPLASTIN TIME 25.6 seconds 22.5-36.0 (BEAKER) (test code = 760) PROTHROMBIN TIME/[id number] 08:39:46 Test Item Value Reference Range Interpretation Comments PROTIME (BEAKER) (test code = 14.2 seconds 11.9-14.2 759) INR (BEAKER) (test code = 370) 1.09 <=5.90 RECOMMENDED COUMADIN/WARFARIN INR THERAPY RANGESSTANDARD DOSE: 2.0 - 3.0 Includes: PROPHYLAXIS for venous thrombosis, systemic embolization; TREATMENT for venous thrombosis and/or pulmonary embolus.HIGH RISK: Target INR is 2.5-3.5 for patients with mechanical heart valves.[id number] 01:48:20 Test Item Value Reference Range Interpretation Comments MAGNESIUM (BEAKER) (test code = 1.8 mg/dL 1.6-2.6 627) Thread Drawer ID - BSBASIC METABOLIC [id number] 01:48:19 Test Item Value Reference Range Interpretation Comments SODIUM (BEAKER) 139 meq/L 136-145 (test code = 381) POTASSIUM 3.5 meq/L 3.5-5.1 (BEAKER) (test code = 379) CHLORIDE (BEAKER) 109 meq/L 98-107 H (test code = 382) CO2 (BEAKER) 19 meq/L 22-29 L (test code = 355) BLOOD UREA 17 mg/dL 7-21 NITROGEN (BEAKER) (test code = 354) CREATININE 0.65 mg/dL 0.57-1.25 (BEAKER) (test code = 358) GLUCOSE RANDOM 80 mg/dL 70-105 (BEAKER) (test code = 652) CALCIUM (BEAKER) 9.0 mg/dL 8.4-10.2 (test code = 697) EGFR (BEAKER) 91 Interpretatio n of eGFR (test code = mL/min/1.73 values Stage De scription 1092) sq m Result G1 Ivy l or high >=90 G2 Mildly decreased 60-89 G3a Mildl y to moderately 45-5 9 G3b Moderately to s everely 30-44 G4 Severl y decreased 15-29 G5 Kidney failure <15Reported eGF R is based on the CKD-EPI 2020 equation that d oes not use a race coefficientEsti mated GFR is not as accur ate as Creatinine Rukhsana costello in predicting glom erular filtration rate . Estimated GFR is not appl icable for dialysis patien ts Thread Drawer ID - BSCBC (HEMOGRAM ONLY)2023-09-02 01:24:57 Test Item Value Reference Range Interpretation Comments WHITE BLOOD CELL COUNT (BEAKER) 8.7 K/ L 3.5-10.5 (test code = 775) RED BLOOD CELL COUNT (BEAKER) 3.71 M/ L 3.93-5.22 L (test code = 761) HEMOGLOBIN (BEAKER) (test code = 11.5 GM/DL 11.2-15.7 410) HEMATOCRIT (BEAKER) (test code = 34.0 % 34.1-44.9 L 411) MEAN CORPUSCULAR VOLUME (BEAKER) 92 fL 79-95 (test code = 753) MEAN CORPUSCULAR HEMOGLOBIN 31.0 pg 25.6-32.2 (BEAKER) (test code = 751) MEAN CORPUSCULAR HEMOGLOBIN CONC 33.8 GM/DL 32.2-35.5 (BEAKER) (test code = 752) RED CELL DISTRIBUTION WIDTH 12.5 % 11.7-14.4 (BEAKER) (test code = 412) PLATELET COUNT (BEAKER) (test 293 K/CU MM 150-450 code = 756) MEAN PLATELET VOLUME (BEAKER) 8.9 fL 9.4-12.3 L (test code = 754) NUCLEATED RED BLOOD CELLS 0 /100 WBC 0-0 (BEAKER) (test code = 413) BASIC METABOLIC [id number] 05:42:14 Test Item Value Reference Range Interpretation Comments SODIUM (BEAKER) 143 meq/L 136-145 (test code = 381) POTASSIUM 3.5 meq/L 3.5-5.1 (BEAKER) (test code = 379) CHLORIDE (BEAKER) 114 meq/L 98-107 H (test code = 382) CO2 (BEAKER) 20 meq/L 22-29 L (test code = 355) BLOOD UREA 16 mg/dL 7-21 NITROGEN (BEAKER) (test code = 354) CREATININE 0.67 mg/dL 0.57-1.25 (BEAKER) (test code = 358) GLUCOSE RANDOM 75 mg/dL 70-105 (BEAKER) (test code = 652) CALCIUM (BEAKER) 8.7 mg/dL 8.4-10.2 (test code = 697) EGFR (BEAKER) 91 Interpretatio n of eGFR (test code = mL/min/1.73 values Stage De scription 1092) sq m Result G1 Ivy l or high >=90 G2 Mildly decreased 60-89 G3a Mildl y to moderately 45-5 9 G3b Moderately to s everely 30-44 G4 Severl y decreased 15-29 G5 Kidney failure <15Reported eGF R is based on the CKD-EPI 2020 equation that d oes not use a race coefficientEsti mated GFR is not as accur ate as Creatinine Rukhsana trang in predicting glom erular filtration rate . Estimated GFR is not appl icable for dialysis patien ts Thread Drawer ID - [id number] 05:42:14 Test Item Value Reference Range Interpretation Comments MAGNESIUM (BEAKER) (test code = 2.0 mg/dL 1.6-2.6 627) Thread Drawer ID - ADMINCBC (HEMOGRAM ONLY)2023-09-01 05:14:42 Test Item Value Reference Range Interpretation Comments WHITE BLOOD CELL COUNT (BEAKER) 10.0 K/ L 3.5-10.5 (test code = 775) RED BLOOD CELL COUNT (BEAKER) 3.96 M/ L 3.93-5.22 (test code = 761) HEMOGLOBIN (BEAKER) (test code = 11.8 GM/DL 11.2-15.7 410) HEMATOCRIT (BEAKER) (test code = 35.8 % 34.1-44.9 411) MEAN CORPUSCULAR VOLUME (BEAKER) 90 fL 79-95 (test code = 753) MEAN CORPUSCULAR HEMOGLOBIN 29.8 pg 25.6-32.2 (BEAKER) (test code = 751) MEAN CORPUSCULAR HEMOGLOBIN CONC 33.0 GM/DL 32.2-35.5 (BEAKER) (test code = 752) RED CELL DISTRIBUTION WIDTH 12.7 % 11.7-14.4 (BEAKER) (test code = 412) PLATELET COUNT (BEAKER) (test 306 K/CU MM 150-450 code = 756) MEAN PLATELET VOLUME (BEAKER) 8.9 fL 9.4-12.3 L (test code = 754) NUCLEATED RED BLOOD CELLS 0 /100 WBC 0-0 (BEAKER) (test code = 413) XR CHEST 1 VIEW PORTABLE / [id number] 04:16:57 [facility] : 1945 Sex: FHistory: leukocytosis, eval for aspiration.Comparison: None.Findings:A single view of the chest is submitted.The cardiac silhouette is enlarged. The aorta is elongated. There is central pulmonary vascular engorgement and perihilarinterstitial coarsening, an appearance which may be exaggerated by lowlungvolumes and patient positioning or reflect pulmonary vascularcongestion/mild interstitial edema.Small bilateral pleural effusions are suspected.Bibasilar opacity, most prominent in the retrocardiac left lung, mayreflect a combination of atelectasis, effusion and edema. Pneumonitiscould be present given the clinical history. 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 The esophagus,stomach, and small bowel is evaluated with single contrast techniqueafter oral ingestion of Gastrografin contrast using AP ab dominalradiographs. Fluoroscopy time: 1.47 minutesDose: 6517 [id number] of images: 154FINDINGS: Initial high pressure kettle operator radiograph was obtained. Images demonstrate anonobstructive bowel gas pattern.Contrast is seen flowing down the esophagus and into the stomach. The GEjunction is normally positioned at the level of the diaphragm.Subsequently, there is passage of contrast within a malrotatedparaesophageal hernia. Contrast is subtotally seen passing into thegastric antrum and subsequently the small bowel.IMPRESSION:1. Normal position of the GE junction at the level of the diaphragm.2. Large malrotated paraeso phageal hernia.3. No evidence of gastric outlet obstruction, as questioned.Electronically Signed By:Michelle Krishnan08/31/2023 17:40 CDTWorkstation Name: [id number] W/PLT COUNT & AUTO [id number] 12:51:50 Test Item Value Reference Range Interpretation Comments WHITE BLOOD CELL COUNT (BEAKER) 11.3 K/ L 3.5-10.5 H (test code = 775) RED BLOOD CELL COUNT (BEAKER) 4.02 M/ L 3.93-5.22 (test code = 761) HEMOGLOBIN (BEAKER) (test code = 12.6 GM/DL 11.2-15.7 410) HEMATOCRIT (BEAKER) (test code = 36.9 % 34.1-44.9 411) MEAN CORPUSCULAR VOLUME (BEAKER) 92 fL 79-95 (test code = 753) MEAN CORPUSCULAR HEMOGLOBIN 31.3 pg 25.6-32.2 (BEAKER) (test code = 751) MEAN CORPUSCULAR HEMOGLOBIN CONC 34.1 GM/DL 32.2-35.5 (BEAKER) (test code = 752) RED CELL DISTRIBUTION WIDTH 12.2 % 11.7-14.4 (BEAKER) (test code = 412) PLATELET COUNT (BEAKER) (test 320 K/CU MM 150-450 code = 756) MEAN PLATELET VOLUME (BEAKER) 8.9 fL 9.4-12.3 L (test code = 754) NUCLEATED RED BLOOD CELLS 0 /100 WBC 0-0 (BEAKER) (test code = 413) NEUTROPHILS RELATIVE PERCENT 82 % (BEAKER) (test code = 429) LYMPHOCYTES RELATIVE PERCENT 13 % (BEAKER) (test code = 430) MONOCYTES RELATIVE PERCENT 5 % (BEAKER) (test code = 431) EOSINOPHILS RELATIVE PERCENT 0 % (BEAKER) (test code = 432) BASOPHILS RELATIVE PERCENT 0 % (BEAKER) (test code = 437) NEUTROPHILS ABSOLUTE COUNT 9.27 K/ L 1.56-6.13 H (BEAKER) (test code = 670) LYMPHOCYTES ABSOLUTE COUNT 1.47 K/ L 1.18-3.74 (BEAKER) (test code = 414) MONOCYTES ABSOLUTE COUNT (BEAKER) 0.53 K/ L 0.24-0.36 H (test code = 415) EOSINOPHILS ABSOLUTE COUNT 0.01 K/ L 0.04-0.36 L (BEAKER) (test code = 416) BASOPHILS ABSOLUTE COUNT (BEAKER) 0.02 K/ L 0.01-0.08 (test code = 417) IMMATURE GRANULOCYTES-RELATIVE 0.40 % 0.00-1.00 PERCENT (BEAKER) (test code = 2801) COMPREHENSIVE METABOLIC [id number] 06:25:29 Test Item Value Reference Range Interpretation Comments TOTAL PROTEIN 6.4 gm/dL 6.0-8.3 (BEAKER) (test code = 770) ALBUMIN (BEAKER) 3.7 g/dL 3.5-5.0 (test code = 1145) ALKALINE 60 U/L 40-150 PHOSPHATASE (BEAKER) (test code = 346) BILIRUBIN TOTAL 0.4 mg/dL 0.2-1.2 (BEAKER) (test code = 377) SODIUM (BEAKER) 136 meq/L 136-145 (test code = 381) POTASSIUM (BEAKER) 3.3 meq/L 3.5-5.1 L (test code = 379) CHLORIDE (BEAKER) 104 meq/L 98-107 (test code = 382) CO2 (BEAKER) (test 23 meq/L 22-29 code = 355) BLOOD UREA 13 mg/dL 7-21 NITROGEN (BEAKER) (test code = 354) CREATININE 0.72 mg/dL 0.57-1.25 (BEAKER) (test code = 358) GLUCOSE RANDOM 96 mg/dL 70-105 (BEAKER) (test code = 652) CALCIUM (BEAKER) 8.4 mg/dL 8.4-10.2 (test code = 697) AST (SGOT) 18 U/L 5-34 (BEAKER) (test code = 353) ALT (SGPT) 15 U/L 6-55 (BEAKER) (test code = 347) EGFR (BEAKER) 87 Interpretatio n of eGFR (test code = 1092) mL/min/1.[address] age Description sq m Result G1 Ivy l or high >=90 G2 Mildly decreased 60-89 G3a Mildl y to moderately 45-5 9 G3b Moderately to s everely 30-44 G4 Severl y decreased 15-29 G5 Kidne y failure <15Reported eGF R is based on the CKD-EPI 2020 equation that d oes not use a race coefficientEsti mated GFR is not as accur ate as Creatinine Rukhsana trang in predicting glom erular filtration rate . Estimated GFR is not appl icable for dialysis patien ts Thread Drawer ID - [id number] W/PLT COUNT & AUTO [id number] 06:21:00 Test Item Value Reference Range Interpretation Comments WHITE BLOOD CELL COUNT (BEAKER) 13.2 K/ L 3.5-10.5 H (test code = 775) RED BLOOD CELL COUNT (BEAKER) 3.89 M/ L 3.93-5.22 L (test code = 761) HEMOGLOBIN (BEAKER) (test code = 11.7 GM/DL 11.2-15.7 410) HEMATOCRIT (BEAKER) (test code = 34.7 % 34.1-44.9 411) MEAN CORPUSCULAR VOLUME (BEAKER) 89 fL 79-95 (test code = 753) MEAN CORPUSCULAR HEMOGLOBIN 30.1 pg 25.6-32.2 (BEAKER) (test code = 751) MEAN CORPUSCULAR HEMOGLOBIN CONC 33.7 GM/DL 32.2-35.5 (BEAKER) (test code = 752) RED CELL DISTRIBUTION WIDTH 12.4 % 11.7-14.4 (BEAKER) (test code = 412) PLATELET COUNT (BEAKER) (test 311 K/CU MM 150-450 code = 756) MEAN PLATELET VOLUME (BEAKER) 8.7 fL 9.4-12.3 L (test code = 754) NUCLEATED RED BLOOD CELLS 0 /100 WBC 0-0 (BEAKER) (test code = 413) NEUTROPHILS RELATIVE PERCENT 79 % (BEAKER) (test code = 429) LYMPHOCYTES RELATIVE PERCENT 16 % (BEAKER) (test code = 430) MONOCYTES RELATIVE PERCENT 5 % (BEAKER) (test code = 431) EOSINOPHILS RELATIVE PERCENT 0 % (BEAKER) (test code = 432) BASOPHILS RELATIVE PERCENT 0 % (BEAKER) (test code = 437) NEUTROPHILS ABSOLUTE COUNT 10.36 K/ L 1.56-6.13 H (BEAKER) (test code = 670) LYMPHOCYTES ABSOLUTE COUNT 2.14 K/ L 1.18-3.74 (BEAKER) (test code = 414) MONOCYTES ABSOLUTE COUNT (BEAKER) 0.61 K/ L 0.24-0.36 H (test code = 415) EOSINOPHILS ABSOLUTE COUNT 0.02 K/ L 0.04-0.36 L (BEAKER) (test code = 416) BASOPHILS ABSOLUTE COUNT (BEAKER) 0.03 K/ L 0.01-0.08 (test code = 417) IMMATURE GRANULOCYTES-RELATIVE 0.30 % 0.00-1.00 PERCENT (BEAKER) (test code = 2801)
[2023-09-13 12:33] LABS: Hematocrit 35.3 % (36.0-45.0); Lymphocytes % 8.6 % (15.3-44.8); MPV 6.3 fL (7.6-11.3); Platelets 515 thou/uL (152-406); Protime INR 1.07; RBC Red Blood Cell Count 3.88 M/uL (3.86-4.86)
[2023-09-13 12:51] LABS: ALT/SGPT 32 U/L (13-56); AST/SGOT 20 U/L (15-37); Albumin 3.4 g/dL (3.4-5.0); Alkaline Phosphatase 109 U/L (45-117); BUN Blood Urea Nitrogen 14 mg/dL (7-18); Bicarbonate 28 mEq/L (21-32); Bilirubin Total 0.3 mg/dL (0.2-1.0); Glomerular Filtration Rate 82 ml/min (=/>90); Glucose Level 130 mg/dL (74-106); Lipase 32 U/L (13-75); Magnesium 2.1 mg/dL (1.6-2.4); NT PRO-BNP 40 pg/mL (<450); Potassium 3.3 mEq/L (3.5-5.1); Protein, Total 7.5 g/dL (6.4-8.2); Sodium Level 135 mEq/L (136-145); Troponin High Sensitivity 6.3 pg/mL (<58.9)
[2023-09-13 12:53] LABS: Bilirubin Direct < 0.1 mg/dL (0-0.2); Bilirubin Indirect, Calculated ND mg/dL (0.2-0.8)
[2023-09-13 12:59] LABS: Blood Morphology Comment NOT SEEN (NOT SEEN); Platelet Estimate INCR; White Blood Cell Scan OK (OK)
[2023-09-13] MEDS ORDERED: ONDANSETRON 4 MG/2 ML VIAL ONE (13:07)
[2023-09-13] MEDS ORDERED: NA CHLORIDE 0.9% 1,000 ML ONE (13:07)
[2023-09-13] MEDS ORDERED: FENTANYL CITR 100 MCG/2 ML ONE (13:07)
[2023-09-13] MEDS ORDERED: FAMOTIDINE 20 MG/2 ML VIAL IV ONE (13:08)
--- NOTE | 2023-09-13 13:13 | RAD REPORT ---
EXAM DESCRIPTION: CT - Chest Abdomen Pelvis W Cont - 09/13/2023 12:49 pm CLINICAL HISTORY: Chest and abdominal pain COMPARISON: August 30, 2023 TECHNIQUE: Computed axial tomography of the chest, abdomen and pelvis was obtained. 100 cc Isovue-30 0 was administered intravenously. Oral contrast was not requested. This limits evaluation of bowel. All CT scans are performed using dose optimization technique as appropriate and may include automated exposure control or mA/KV adjustment according to patient size. FINDINGS: Postsurgical changes of a recent hiatal hernia repair. Small amount of air is present with in anterior subcutaneous tissues of the chest and abdomen. Mild left lower lobe atelectasis No mediastinal or hilar lymphadenopathy. No pleural effusion. No pericardial effusion. Tiny low-density lesions within the liver unchanged are too small to characterize. 4.3 centimeter low-density area has developed within the medial superior aspect of the spleen. It ext ends to the periphery Small right adrenal lesion contains calcification likely benign Pancreas and kidneys are unremarkable No evidence of diverticulitis. No adnexal mass IMPRESSION: Postsurgical changes of a recent hiatal hernia repair 4.3 centimeter low-density area within the spleen reaching the periphery probably an infarction. An a bscess considered less likely. It is recommended that the patient have a follow up splenic ultrasound in approximately 3 days for re-evaluation. If the patient's symptoms worsen then the ultrasound shou ld be performed sooner
[2023-09-13 13:15] LABS: Specific Gravity > 1.030 (1.005-1.030); Urine Bilirubin NEGATIVE (Negative); Urine Blood Negative (Negative); Urine Clarity Clear (Clear); Urine Color Light-Yellow (Yellow); Urine Glucose NEGATIVE (Negative); Urine Protein NEGATIVE (Negative); Urine Urobilinogen Normal (Normal)
--- NOTE | 2023-09-13 13:17 | RAD REPORT ---
EXAM DESCRIPTION: Marsha Single View09/13/2023 12:51 pm CLINICAL HISTORY: Shortness breath COMPARISON: August 30, 2023 FINDINGS: Mild left lower lobe atelectasis. Postsurgical changes hiatal hernia repair Heart is borderline enlarged
[2023-09-13] MEDS ORDERED: NS KCL 20MEQ 1,000 ML IV ONE (14:27)
--- NOTE | 2023-09-13 15:18 | RAD REPORT ---
EXAM DESCRIPTION: US - Abdomen Exam Limited - 09/13/2023 2:56 pm CLINICAL HISTORY: Abdominal pain. COMPARISON: CT abdomen September 13, 2023 FINDINGS: 4.3 centimeter subtle hypoechoic area within the superior aspect of the spleen. IMPRESSION: 4.3 centimeter subtle hypoechoic area superior aspect of the spleen probably an infarcti on. Follow up splenic ultrasound in 1 week is recommended for re-evaluation
--- NOTE | 2023-09-13 15:49 | EDPHYS ---
Physician Documentation [facility] Name: Annalisa José Age: 78 yrs Sex: Female : 1945 Arrival Date: 09/13/2023 Time: 11:48 Bed 17 Private MD: MARYA Physician Ross Arreguin HPI: 09/13 13:35 This 78 yrs old Female presents to ER via Ambulatory with complaints of Post esme Surgical Pain, Vomiting. 13:35 The patient presents to the emergency department with nausea, vomiting, that is esme intermittent. Onset: The symptoms/episode began/occurred yesterday. Possible causes: unknown, sp surgery. The symptoms are aggravated by nothing. The symptoms are alleviated by food . Associated signs and symptoms: The patient has no apparent associated signs or symptoms. Severity of symptoms: At their worst the symptoms were mild moderate in the emergency department the symptoms are unchanged. The patient has experienced similar episodes in the past, several times. Historical: - Allergies: 12:01 Morphine; ll1 - PMHx: 12:00 Hypertensive disorder; ll1 - PSHx: 12:00 section; stomach/hernia SX ( section); ll1 - Immunization history:: Adult Immunizations up to date. - Social history:: Smoking status: Patient denies any tobacco usage or history of. - Family history:: not pertinent. ROS: 13:35 Constitutional: Negative for fever, chills, and weight loss, Eyes: Negative for injury, esme pain, redness, and discharge, ENT: Negative for injury, pain, and discharge, Neck: Negative for injury, pain, and swelling, Cardiovascular: Negative for chest pain, palpitations, and edema, Respiratory: Negative for shortness of breath, cough, wheezing, and pleuritic chest pain, Back: Negative for injury and pain, : Negative for injury, bleeding, discharge, and swelling, MS/Extremity: Negative for injury and deformity, Skin: Negative for injury, rash, and discoloration, Neuro: Negative for headache, weakness, numbness, tingling, and seizure, Psych: Negative for depression, anxiety, suicide ideation, homicidal ideation, and hallucinations, Allergy/Immunology: Negative for hives, rash, and allergies, Endocrine: Negative for neck swelling, polydipsia, polyuria, polyphagia, and marked weight changes, Hematologic/Lymphatic: Negative for swollen nodes, abnormal bleeding, and unusual bruising, 13:35 Abdomen/GI: Positive for nausea and vomiting, nausea, vomiting, of the right upper quadrant and left upper quadrant, Exam: 13:35 Constitutional: This is a well developed, well nourished patient who is awake, alert, esme and in no acute distress. Head/Face: Normocephalic, atraumatic. Eyes: Pupils equal round and reactive to light, extra-ocular motions intact. Lids and lashes normal. Conjunctiva and sclera are non-icteric and not injected. Cornea within normal limits. Periorbital areas with no swelling, redness, or edema. ENT: Nares patent. No nasal discharge, no septal abnormalities noted. Tympanic membranes are normal and external auditory canals are clear. Oropharynx with no redness, swelling, or masses, exudates, or evidence of obstruction, uvula midline. Mucous membranes moist. Neck: Trachea midline, no thyromegaly or masses palpated, and no cervical lymphadenopathy. Supple, full range of motion without nuchal rigidity, or vertebral point tenderness. No Meningismus. Chest/axilla: Normal chest wall appearance and motion. Nontender with no deformity. No lesions are appreciated. Cardiovascular: Regular rate and rhythm with a normal S1 and S2. No gallops, murmurs, or rubs. Normal PMI, no JVD. No pulse deficits. Respiratory: Lungs have equal breath sounds bilaterally, clear to auscultation and percussion. No rales, rhonchi or wheezes noted. No increased work of breathing, no retractions or nasal flaring. Abdomen/GI: Soft, non-tender, with normal bowel sounds. No distension or tympany. No guarding or rebound. No evidence of tenderness throughout. Back: No spinal tenderness. No costovertebral tenderness. Full range of motion. Female : Normal external genitalia. Skin: Warm, dry with normal turgor. Normal color with no rashes, no lesions, and no evidence of cellulitis. MS/ Extremity: Pulses equal, no cyanosis. Neurovascular intact. Full, normal range of motion. Neuro: Awake and alert, GCS 15, oriented to person, place, time, and situation. Cranial nerves II-XII grossly intact. Motor strength 5/5 in all extremities. Sensory grossly intact. Cerebellar exam normal. Normal gait. Psych: Awake, alert, with orientation to person, place and time. Behavior, mood, and affect are within normal limits. 13:35 Musculoskeletal/extremity: DVT Exam: No signs of deep vein thrombosis. no pain, no swelling, no tenderness, negative Homans' sign noted on exam, no appreciated bluish discoloration, no erythema, no increased warmth, 13:44 ECG was reviewed by the Attending Physician. [facility] Vital Signs: 12:01 BP 178 / 91; Pulse 79; Resp 17; Temp 98.6; Pulse Ox 97% on R/A; Weight 54.43 kg; Height ll1 4 ft. 11 in. ; Pain 0/10; 12:57 BP 159 / 76; Pulse 75; Resp 16; Pulse Ox 97% on R/A; db 13:30 BP 174 / 65; Pulse 69; Resp 16; Pulse Ox 98% on R/A; db 14:00 BP 172 / 71; Pulse 66; Resp 16; Pulse Ox 97% ; db 15:24 BP 177 / 74; Pulse 71; Resp 16; Pulse Ox 98% on R/A; db 16:00 BP 167 / 79; Pulse 70; Resp 16; Pulse Ox 97% on R/A; db 12:01 Body Mass Index 24.24 (54.43 kg, 149.86 cm) ll1 12:01 Pain Scale: Adult ll1 MDM: 12:07 Patient medically screened. [facility] 13:38 Differential diagnosis: Nonspecific abd pain, gastritis, pancreatitis, viral esme gastroenteritis, gastroenteritis, obstruction. Data reviewed: vital signs, nurses notes, lab test result(s), EKG, radiologic studies, CT scan, plain films. I considered the following discharge prescriptions or medication management in the emergency department Medications were administered in the Emergency Department. See MAR. Independent interpretation of the following test(s) in the Emergency Department EKG: See my EKG interpretation above. Test considered but Not performed: Ultrasound no abd usg. Care significantly affected by the following chronic conditions: Hypertension. Counseling: I had a detailed discussion with the patient and/or guardian regarding the historical points, exam findings, and any diagnostic results supporting the discharge/admit diagnosis, the presence of at least one elevated blood pressure reading (>120/80) during this emergency department visit, lab results, radiology results. 15:47 ED course: dr roe,ok to dc, aware of the spleen infarcts, expected comp. 09/13 12:09 Order name: Basic Metabolic Panel; Complete Time: 13:40 [facility] 09/13 12:09 Order name: CBC with Diff; Complete Time: 13:40 [facility] 09/13 12:09 Order name: LFT's; Complete Time: 13:40 09/13 12:09 Order name: Magnesium; Complete Time: 13:40 09/13 12:09 Order name: NT PRO-BNP; Complete Time: 13:40 [facility] 09/13 12:09 Order name: PT-INR; Complete Time: 13:40 [facility] 09/13 12:09 Order name: Troponin HS; Complete Time: 13:40 [facility] 09/13 12:09 Order name: Lipase; Complete Time: 13:40 [facility] 09/13 12:09 Order name: Urinalysis w/ reflexes; Complete Time: 13:40 [facility] 09/13 12:36 Order name: CBC Smear Scan; Complete Time: 13:40 [facility] 09/13 12:09 Order name: XRAY Chest (1 view); Complete Time: 13:40 [facility] 09/13 12:09 Order name: CT Chest, Abdomen, Pelvis - W/Contrast; Complete Time: 13:40 [facility] 09/13 14:21 Order name: US Abdomen Limited; Complete Time: 15:38 [facility] 09/13 15:38 Order name: INCENTIVE SPIROMETRY 09/13 12:09 Order name: EKG; Complete Time: 12:10 09/13 12:09 Order name: Cardiac monitoring; Complete Time: 14:20 09/13 12:09 Order name: EKG - Nurse/Tech; Complete Time: 14:20 09/13 12:09 Order name: IV Saline Lock; Complete Time: 12:27 [facility] 09/13 12:09 Order name: Labs collected and sent; Complete Time: 12:27 [facility] 09/13 12:09 Order name: O2 Per Protocol; Complete Time: 14:19 [facility] 09/13 12:09 Order name: O2 Sat Monitoring; Complete Time: 14:19 [facility] 09/13 15:41 Order name: PO challenge; Complete Time: 15:58 [facility] EC:44 Rate is 70 beats/min. Rhythm is regular. QRS Collison is Normal. NC interval is normal. QRS esme interval is normal. QT interval is normal. No Q waves. T waves are Normal. No ST changes noted. Clinical impression: NSR w/ Non-specific ST/T Changes and No evidence of ischemia. Interpreted by me. Reviewed by me. Administered Medications: 13:05 Drug: Ondansetron IVP 4 mg IVP once; over 2 minutes Route: IVP; Site: right antecubital;db 17:04 Follow up: Response: No adverse reaction db 13:05 Drug: Famotidine IVP 20 mg IVP once; dilute with 10 mL 0.9% NaCl; give over 2 minutes db Route: IVP; Site: right antecubital; 17:04 Follow up: Response: No adverse reaction db 13:05 Drug: NS 0.9% IV 1000 ml IV at 1 bolus Per protocol; 1000 mL bolus Route: IV; Rate: 1 db bolus; Site: right antecubital; 17:04 Follow up: Response: No adverse reaction; IV Status: Completed infusion; IV Intake: db 1000ml 13:11 Not Given (Patient Refused): fentanyl (pf)25 mcg IVP once db 13:12 Not Given (Patient Refused): fentanyl (pf)25 mcg IVP once db 14:17 Drug: NS 0.9% with KCl IV 20 mEq/L 1000 ml IV at ml/hr continuous Route: IV; Rate: db ml/hr; Site: right antecubital; 16:30 Follow up: Response: No adverse reaction; IV Status: Completed infusion db Disposition Summary: 09/13/23 15:49 Discharge Ordered Notes: Location: Home esme Problem: new esme Symptoms: have improved esme Condition: Stable esme Diagnosis - Vomiting esme - Vomiting following gastrointestinal surgery esme - Hypokalemia 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 Followup: esme - With: Private Physician - When: 2 - 3 days - Reason: Recheck today's complaints, Continuance of care, Re-evaluation by your physician Discharge Instructions: - Discharge Summary Sheet esme - Potassium Content of Foods esme - Hypokalemia esme - Vomiting, Adult esme Forms: - Medication Reconciliation Form esme - Thank You Letter esme - Antibiotic Education esme - Prescription Opioid Use esme - Patient Portal Instructions esme - Leadership Thank You Letter [facility] Prescriptions: - ondansetron 4 mg Oral Tablet,disintegrating - take 1 tablet ORAL route every 6-8 hours for 5 days 1st dose 1-2 hr before esme radiation; 20 tablet; Refills: 0, Product Selection Permitted Signatures: Dispatcher [employer] Ross Lawrence MD MD cha Lewis, Lynsay, RN RN ll1 Jasmine Clark RN RN db Corrections: (The following items were deleted from the chart) 12:01 12:00 Allergies: No Known Allergies; ll1 1
--- NOTE | 2023-09-13 15:49 | ER ---
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 N/V ll1 started today. Had abdominal SX 11 days ago. Coronavirus screen: Vaccine status: Patient reports receiving the 2nd dose of the covid vaccine. Client denies travel out of the [place] in the last 14 days. At this time, the client does not indicate any symptoms associated with coronavirus-19. Ebola Screen: Patient denies travel to an Ebola-affected area in the 21 days before illness onset. Initial Sepsis Screen: Does the patient meet any 2 criteria? No. Patient's initial sepsis screen is negative. Does the patient have a suspected source of infection? Yes: Other: N/V. Risk Assessment: Do you want to hurt yourself or someone else? Patient reports no desire to harm self or others. Onset of symptoms was September 12, 2023. 12:01 Method Of Arrival: Ambulatory ll1 12:01 Acuity: JOSE DAVID 3 ll1 Historical: - Allergies: 12:01 Morphine; ll1 - PMHx: 12:00 Hypertensive disorder; ll1 - PSHx: 12:00 section; stomach/hernia SX ( section); ll1 - Immunization history:: Adult Immunizations up to date. - Social history:: Smoking status: Patient denies any tobacco usage or history of. - Family history:: not pertinent. Screenin:00 [facility] ED Fall Risk Assessment (Adult) History of falling in the last 3 months, db including since admission No falls in past 3 months (0 pts) Confusion or Disorientation No (0 pts) Intoxicated or Sedated No (0 pts) Impaired Gait No (0 pts) Mobility Assist Device Used No (0 pt) Altered Elimination No (0 pt) Score/Fall Risk Level 0 - 2 = Low Risk Oriented to surroundings, Maintained a safe environment. Abuse screen: Denies threats or abuse. Denies injuries from another. Nutritional screening: No deficits noted. Tuberculosis screening: No symptoms or risk factors identified. Assessment: 12:45 Reassessment: Patient appears in no apparent distress at this time. Patient and/or db family updated on plan of care and expected duration. Pain level reassessed. Patient is alert, oriented x 3, equal unlabored respirations, skin warm/dry/pink. General: Appears in no apparent distress. comfortable, Behavior is calm, cooperative. Pain: Complains of pain in left upper quadrant and right upper quadrant. Neuro: Level of Consciousness is awake, alert, obeys commands, Oriented to person, place, time, situation, Speech is normal. GI: Abdomen is non-distended, Reports lower abdominal pain, nausea. 13:30 Reassessment: Patient appears in no apparent distress at this time. Patient and/or db family updated on plan of care and expected duration. Pain level reassessed. Patient is alert, oriented x 3, equal unlabored respirations, skin warm/dry/pink. 14:30 Reassessment: Patient appears in no apparent distress at this time. Patient and/or db family updated on plan of care and expected duration. Pain level reassessed. Patient is alert, oriented x 3, equal unlabored respirations, skin warm/dry/pink. Patient states feeling better. 15:30 Reassessment: Patient appears in no apparent distress at this time. Patient and/or db family updated on plan of care and expected duration. Pain level reassessed. Patient is alert, oriented x 3, equal unlabored respirations, skin warm/dry/pink. 16:15 Reassessment: Patient appears in no apparent distress at this time. Patient and/or db family updated on plan of care and expected duration. Pain level reassessed. Patient is alert, oriented x 3, equal unlabored respirations, skin warm/dry/pink. FAMILY IS AT BEDSIDE Patient states feeling better. Vital Signs: 12:01 BP 178 / 91; Pulse 79; Resp 17; Temp 98.6; Pulse Ox 97% on R/A; Weight 54.43 kg; Height ll1 4 ft. 11 in. ; Pain 0/10; 12:57 BP 159 / 76; Pulse 75; Resp 16; Pulse Ox 97% on R/A; db 13:30 BP 174 / 65; Pulse 69; Resp 16; Pulse Ox 98% on R/A; db 14:00 BP 172 / 71; Pulse 66; Resp 16; Pulse Ox 97% ; db 15:24 BP 177 / 74; Pulse 71; Resp 16; Pulse Ox 98% on R/A; db 16:00 BP 167 / 79; Pulse 70; Resp 16; Pulse Ox 97% on R/A; db 12:01 Body Mass Index 24.24 (54.43 kg, 149.86 cm) ll1 12:01 Pain Scale: Adult ll1 ED Course: 11:49 Patient arrived in ED. rg4 12:00 Arm band placed on. ll1 12:03 Triage completed. ll1 12:07 Ross Arreguin MD is Attending Physician. esme 12:33 Patient placed in an exam room, on a stretcher. ll1 12:43 Jasmine Clark, KAYKAY is Primary Nurse. db 12:50 CT Chest, Abdomen, Pelvis - W/Contrast In Process Unspecified. EDMS 12:53 XRAY Chest (1 view) In Process Unspecified. EDMS 13:00 Inserted saline lock: 22 gauge in right antecubital area, using aseptic technique. db 14:56 US Abdomen Limited In Process Unspecified. EDMS 15:[address] Faye at [phone]. bd 15:[address] special investigation unit investigator. Dr Roth. bd 16:30 Patient has correct armband on for positive identification. Bed in low position. Call db light in reach. Side rails up X 1. Provided Education on: DISCHARGE. Client placed on continuous cardiac and pulse oximetry monitoring. NIBP monitoring applied. Warm blanket given. DISCHARGE. 16:30 IV discontinued, intact, bleeding controlled, No redness/swelling at site. db 16:39 No provider procedures requiring assistance completed. db Administered Medications: 13:05 Drug: Ondansetron IVP 4 mg IVP once; over 2 minutes Route: IVP; Site: right antecubital;db 17:04 Follow up: Response: No adverse reaction db 13:05 Drug: Famotidine IVP 20 mg IVP once; dilute with 10 mL 0.9% NaCl; give over 2 minutes db Route: IVP; Site: right antecubital; 17:04 Follow up: Response: No adverse reaction db 13:05 Drug: NS 0.9% IV 1000 ml IV at 1 bolus Per protocol; 1000 mL bolus Route: IV; Rate: 1 db bolus; Site: right antecubital; 17:04 Follow up: Response: No adverse reaction; IV Status: Completed infusion; IV Intake: db 1000ml 13:11 Not Given (Patient Refused): fentanyl (pf)25 mcg IVP once db 13:12 Not Given (Patient Refused): fentanyl (pf)25 mcg IVP once db 14:17 Drug: NS 0.9% with KCl IV 20 mEq/L 1000 ml IV at ml/hr continuous Route: IV; Rate: db ml/hr; Site: right antecubital; 16:30 Follow up: Response: No adverse reaction; IV Status: Completed infusion db Medication: 16:30 VIS not applicable for this client. db Intake: 17:04 IV: 1000ml; Total: 1000ml. db Outcome: 15:49 Discharge ordered by . esme 16:30 Discharged to home ambulatory, with family, db 16:30 Condition: stable 16:30 Discharge instructions given to patient, Instructed on discharge instructions, follow up and referral plans. Prescriptions given X 1, 17:04 Patient left the ED. db Signatures: Dispatcher [employer] EDMS Millie Beauchamp Corey, MD MD cha Garcia, Rubi rg4 Latia Montanez RN RN ll1 Jasmine Clark RN RN db Corrections: (The following items were deleted from the chart) 12:01 12:00 Allergies: No Known Allergies; ll1 ll1
[2023-09-13 17:18] VITALS: TEMP 98.6
[2023-09-13 17:24] VITALS: BP 167/79; O2SAT 97
--- NOTE | 2023-09-14 15:47 | EKG ---
Test Date: 2023-09-13 Test Time: 13:39:09 [employer] Machine: LUIS ALBERTO MEASUREMENT RESULTS: Intervals: Rate: 70 MI: 166 QRSD: 88 QT: 414 QTc: 447 Dittmer: P: 71 MI: 166 QRS: 48 T: 66 INTERPRETIVE STATEMENTS: Normal sinus rhythm Cannot rule out Anterior infarct, age undetermined Abnormal ECG Compared to ECG 09/13/2023 13:38:51 No significant changes Electronically Signed On 09-14-23 15:42:55 CDT by Billy De Anda
== END 2023-09-13 17:04 | disposition home or self-care (01) ==
LOC: ER 11:48
DX: K91.0 Vomiting following gastrointestinal surgery (principal); E87.6 Hypokalemia; D73.5 Infarction of spleen
CPT/HCPCS: 93005; 85025; 80048; 36415; 83735; 85610; 80076; 81003; 84484; 83690; 83880; 71260; 74177; 71045; 76705; Q9967; J2405; J7030; J3480; J3010

== ENCOUNTER 2023-09-27 16:18 | Emergency (ER) | payer OTHER ==
--- OUTSIDE RECORDS SUMMARY | 2023-09-27 16:23 | XMS REPORT | Continuity of Care Document ---
:1945 Author Organization [facility] t Address [address] [facility] [address] [place] [id number] Care Team Providers Name Role Phone Dennis Patricio Attending Clinician Dulce Maria Pitts MD Attending Clinician Carolyne Mccall MD Attending Clinician Dalia Diaz MD Attending Clinician DALIA DIAZ Attending Clinician Unavailable NELSON STILES Attending Clinician Unavailable FARAZ MILES Attending Clinician Unavailable JUAN KEYS Attending Clinician Unavailable Darlene Scanlon MD Attending Clinician Valorie Vigil Attending Clinician Payam Faye MD Attending Clinician CAROLYNE MCCALL Attending Clinician Unavailable DULCE MARIA PITTS Admitting Clinician Unavailable Payers Payer Name Policy Type Policy Number Effective Date Expiration Date S tani [employer] MEDICARE [id number] 2022 ADV 00:00:00 Problems Condition Condition Condition Status Onset Resolution Last Treating Co mments Source Name Details Category Date Date Treatment Clinician Date Hiatal Hiatal Disease Active 2022-[address] [facility] Acute Acute Disease Active [facility] [...] Date Stop Date Quantity Comments Source History [facility]Med [facility] Alcohol intake 2023-09-04 2023-09-04 Ex-drinker [facility] 00:[facility]00 00:00:00 (finding) Medical Center Exposure to 2023-08-21 2023-08-[address] [facility] SARS-CoV-2 (event) 00:00:00 00:51:00 Medica [facility] Tobacco use and 2023-08-31 2023-08-31 Smokeless [address] [facility] exposure 00:00[facility]00 00:00:00 non-user Medical Center [facility] 2023-08-31 2023-08-[address] [facility] Transport Med 00:00:00 00:00:[address] History [facility] 2023-08-31 2023-08-[address] [facility] Housing Unable to 00:00:00 00:00:00 Medical Center Pay History [facility] 2023-08-31 2023-08-[address] [facility] Housing Places 00:00:00 00:00:00 Medical Ce nter Lived History [facility] 2023-08-31 2023-08-[address] [facility] Housing Homeless 00:00:00 00:00:00 Medical Center Last Year Sex Assigned At [address] [facility] 00:00:00 00:00:00 Medical Center Smoking Status Start Date Stop Date Source Never smoked tobacco [facility] Medications Ordered Filled Start Stop Current Ordering Indication Dosage Frequency Signature Comments Components Source Medication Medication Date Date Medication? Clinician (SIG) Name Name citalopram 2022-11 Yes 10mg QD Take 1 [facility] (CeleXA) 10 0-18 tablet (10 Lupe kes MG tablet 18:15: mg total) Med ical 13 by mouth Center daily. citalopram 2022-11 Yes 10mg QD Take 1 [facility] (CeleXA) 10 0-18 tablet (10 Lupe kes MG tablet 18:15: mg total) Med ical 13 by mouth Center daily. citalopram 2022-11 Yes 10mg QD Take 1 [facility] (CeleXA) 10 0-18 tablet (10 Lupe kes MG tablet 18:15: mg total) Med ical 13 by mouth Center daily. citalopram 2022-11 Yes 10mg QD Take 1 [facility] (CeleXA) 10 0-18 tablet (10 Lupe kes MG tablet 18:15: mg total) Med ical 13 by mouth Center daily. simethicone 2022-11- Yes 80mg Take [address] (MYLICON) 0-18 10-28 tablet (80 [facility]ay es 80 MG 00:00: 23:59 mg total) Medica l chewable 00 :00 by mouth Center tablet every 8 (eight) hours as needed for Flatulence for up to 10 days. traMADoL 2022-11- Yes 50mg Take [address] (ULTRAM) 50 0-18 10-28 tablet (50 L ukes mg tablet 00:00: 23:59 mg total) Me dical 00 :00 by mouth 2 Center (two) times daily as needed for up to 10 days. Max Daily Amount: 100 mg promethazin 2022-11- Yes 25mg Take [address] [facility] 0-18 10-28 tablet (25 [facility] (PHENERGAN) 00:00: 23:59 mg total) Medical 25 MG 00 :00 by mouth 2 Center tablet (two) times daily as needed for Nausea for up to 10 days. simethicone 2022-11- No 80mg Take [address] (MYLICON) 0-18 10-28 tablet (80 Adonay es 80 MG 00:00: 23:59 mg total) Medica l chewable 00 :00 by mouth Center tablet every 8 (eight) hours as needed for Flatulence for up to 10 days. traMADoL 2022-11- No 50mg Take [address] (ULTRAM) 50 0-18 10-28 tablet (50 L ukes mg tablet 00:00: 23:59 mg total) Me dical 00 :00 by mouth 2 Center (two) times daily as needed for up to 10 days. Max Daily Amount: 100 mg promethazin 2022-11- No 25mg Take [address] [facility] 0-18 10-28 tablet (25 [facility] (PHENERGAN) 00:00: 23:59 mg total) Medical 25 MG 00 :00 by mouth 2 Center tablet (two) times daily as needed for Nausea for up to 10 days. simethicone 2022-11- No 80mg Take [address] (MYLICON) 0-18 10-28 tablet (80 Adonay es 80 MG 00:00: 23:59 mg total) Medica l chewable 00 :00 by mouth Center tablet every 8 (eight) hours as needed for Flatulence for up to 10 days. traMADoL 2022-11- No 50mg Take [address] (ULTRAM) 50 0-18 10-28 tablet (50 L ukes mg tablet 00:00: 23:59 mg total) Me dical 00 :00 by mouth 2 Center (two) times daily as needed for up to 10 days. Max Daily Amount: 100 mg promethazin 2022-11- No 25mg Take [address] [facility] 0-18 10-28 tablet (25 [facility] (PHENERGAN) 00:00: 23:59 mg total) Medical 25 MG 00 :00 by mouth 2 Center tablet (two) times daily as needed for Nausea for up to 10 days. simethicone 2022-11- No 80mg Take [address] (MYLICON) 0-18 10-28 tablet (80 Adonay es 80 MG 00:00: 23:59 mg total) Medica l chewable 00 :00 by mouth Center tablet every 8 (eight) hours as needed for Flatulence for up to 10 days. traMADoL 2022-11- No 50mg Take [address] (ULTRAM) 50 0-18 10-28 tablet (50 L ukes mg tablet 00:00: 23:59 mg total) Me dical 00 :00 by mouth 2 Center (two) times daily as needed for up to 10 days. Max Daily Amount: 100 mg promethazin 2022-11- No 25mg Take [address] [facility] 0-18 10-28 tablet (25 [facility] (PHENERGAN) 00:00: 23:59 mg total) Medical 25 MG 00 :00 by mouth 2 Center tablet (two) times daily as needed for Nausea for up to 10 days. ondansetron 2022-2022- No 4mg Take [address] [facility] (ZOFRAN) 4 0-18 10-18 tablet (4 Adonay es MG tablet 00:00: 00:00 mg total) Me dical 00 :00 by mouth 2 Center (two) times daily as needed for Nausea for up to 10 days. ondansetron 2022-2022- No 4mg Take [address] (ZOFRAN) 4 0-18 10-18 tablet (4 Adonay es MG tablet 00:00: 00:00 mg total) Me dical 00 :00 by mouth 2 Center (two) times daily as needed for Nausea for up to 10 days. ondansetron 2022-2022- No 4mg Take [address] [facility] (ZOFRAN) 4 0-18 10-18 tablet (4 Ad[facility]ay es MG tablet 00:00: 00:00 mg total) Me dical 00 :00 by mouth 2 Center (two) times daily as needed for Nausea for up to 10 days. ondansetron 2022-2022- No 4mg Take [address] (ZOFRAN) 4 0-18 10-18 tablet (4 Ad[facility]ay es MG tablet 00:00: 00:00 mg total) Me dical 00 :00 by mouth 2 Center (two) times daily as needed for Nausea for up to 10 days. metoprolol 2023-0 Yes 25mg QD Take 1 [facility] succinate 9-08 tablet (25 Luke s (TOPROL-XL) 00:00: mg total) M edical 25 MG 24 hr 00 by mouth Cent er tablet daily. metoprolol 2023-0 Yes 25mg QD Take 1 [facility] succinate 9-08 tablet (25 Luke s (TOPROL-XL) 00:00: mg total) M edical 25 MG 24 hr 00 by mouth Cent er tablet daily. metoprolol 2023-0 Yes 25mg QD Take 1 [facility] succinate 9-08 tablet (25 Luke s (TOPROL-XL) 00:00: mg total) M edical 25 MG 24 hr 00 by mouth Cent er tablet daily. metoprolol 2023-0 Yes 25mg QD Take 1 [facility] succinate 9-08 tablet (25 Luke s (TOPROL-XL) 00:00: mg total) M edical 25 MG 24 hr 00 by mouth Cent er tablet daily. lisinopril- 3-0 2023- No 1{tbl} QD Take [address] hydroCHLORO 8-03 10-18 tablet by Lupe bucks thiazide 00:00: 00:00 mouth Medical (PRINZIDE,Z 00 :00 daily. [place] [facility] 20-12.5 mg per tablet lisinopril- 2023-0 2023- No 1{tbl} QD Take [address] hydroCHLORO 8-03 10-18 tablet by Lupe kes thiazide 00:00: 00:00 mouth Medical (PRINZIDE,Z 00 :00 daily. [facility]) 20-12.5 mg per tablet lisinopril- 2023-0 2023- No 1{tbl} QD Take [address] hydroCHLORO 8-03 10-18 tablet by Lupe bucks thiazide 00:00: 00:00 mouth Medical (PRINZIDE,Z 00 :00 daily. [place] [facility]) 20-12.5 mg per tablet lisinopril- 2023-0 2023- No 1{tbl} QD Take [address] hydroCHLORO 8-03 10-18 tablet by Lupe bucks thiazide 00:00: 00:00 mouth Medical (PRINZIDE,Z 00 :00 daily. [place] [facility] 20-12.5 mg per tablet citalopram 2022-0 3- No [address] (CeleXA) 10 - 10-13 [facility] MG tablet 00:00: 00:00 Once a day M edical 00 :00 for 30 Center days citalopram 3-0 3- No [address] (CeleXA) 10 - 10-13 [facility] MG tablet 00:00: 00:00 Once a day M edical 00 :00 for 30 Center days citalopram 3-0 2023- No [address] (CeleXA) 10 - 10-13 [facility]ally [facility] MG tablet 00:00: 00:00 Once a day M edical 00 :00 for 30 Center days citalopram 2022-0 2023- No [address] (CeleXA) 10 4-08-31 [facility] MG tablet 00:00: 00:00 Once a day M edical 00 :00 for 30 days Vital Signs Vital Name Observation Time [...] kg Heart rate 2023-09-05 12:38:00 92 /min [facility] Respiratory rate 2023-09-05 12:38:00 18 /min [facility] Oxygen saturation in 2023-09-05 12:38:00 94 /min [facility] Arterial blood by Medical Ce nter Pulse oximetry Systolic blood 2023-09-05 11:59:00 122 mm[Hg] [facility] Diastolic blood 2023-09-05 11:59:00 58 mm[Hg] [facility] Body temperature 2023-09-05 11:59:00 36.72 Meera [facility] Body weight 2023-09-03 06:00:00 55.838 kg [facility] BMI 2023-09-03 06:00:00 24.86 kg/m2 [facility] Body height 2023-08-31 01:13:00 149.9 cm [facility] Procedures Procedure Date / Time Performed Performing Clinician [facility] e POCT-GLUCOSE METER 2023-09-05 11:56:00 Diaz, [facility] POCT-GLUCOSE METER 2023-09-05 07:41:00 Diaz, [facility] XR CHEST 1 VIEW PORTABLE 2023-09-05 05:45:[address] [facility] BASIC METABOLIC PANEL 2023-09-05 04:08[facility]00 [facility] 2023-09-05 04:08:[address] [facility] MAGNESIUM 2023-09-05 04:08:00 Kain [facility] POCT-GLUCOSE METER 2023-09-04 20:55[facility] 2023-09-04 15:05:00 [facility]IEW PORTABLE 2023-09-04 10:15:[address] [facility] [place] ESOPHAGUS 2023-09-04 10:11[facility]LO[facility]ERIAL 2023-09-04 05:30:00 Jd [facility] PHOSPHORUS 2023-09-04 05:26:00 Jd [facility] BASIC METABOLIC PANEL 2023-09-04 05:26:[address] [facility] CBC (HEMOGRAM ONLY) 2023-09-04 05:26:[address] [facility] MAGNESIUM 2023-09-04 05:26:[address] [facility] XR CHEST 1 VIEW PORTABLE 2023-09-04 00:48:[address] [facility] PHOSPHORUS 2023-09-03 23:20:00 Jd [facility] BASIC METABOLIC PANEL 2023-09-03 23:20:00 Kain [facility] CBC (HEMOGRAM ONLY) 2023-09-03 23:20:[address] [facility] MAGNESIUM 2023-09-03 23:20:00 [facility] PO[facility]-GLUCOSE METER 2023-09-03 22:08:00 CalCarolyne [facility] XR CHEST 1 VIEW PORTABLE 2023-09-03 21:25:00 [facility] Center BLOOD GAS, ARTERIAL 2023-09-03 21:18:00 [facility] RRL CRITICAL LABS 2023-09-03 21:17:00 [facility] (ABG,NA,K,H&H,GLUCOSE) Medical C enter CALCIUM, IONIZED 2023-09-03 21:17:00 [facility] LACTIC ACID, ARTERIAL 2023-09-03 21:17:00 [facility] SODIUM NA-STAT LAB 2023-09-03 21:17:00 [facility] POTASSIUM-STAT LAB 2023-09-03 21:17:00 [facility] GLUCOSE-STAT LAB 2023-09-03 21:17:00 [facility] HGB/HCT (H&H) - STAT LAB 2023-09-03 21:17:00 [facility] SODIUM NA-STAT LAB 2023-09-03 19:54:00 Darlene Scanlon [facility] POTASSIUM-STAT LAB 2023-09-03 19:54:00 Darlene Scanlon [facility] GLUCOSE-STAT LAB 2023-09-03 19:54:00 Darlene Scanlon [facility] HGB/HCT (H&H) - STAT LAB 2023-09-03 19:54:00 Darlene Scanlon [facility] RRL CRITICAL LABS 2023-09-03 19:52:00 Darlene Scanlon [facility] (ABG,NA,K,H&H,GLUCOSE) Medical C enter BLOOD GAS, ARTERIAL 2023-09-03 19:52:00 Darlene Scanlon [facility] RRL CRITICAL LABS 2023-09-03 18:03:26 Leandro Nelson [facility] (ABG,NA,K,H&H,GLUCOSE) Medical C enter CALCIUM, IONIZED 2023-09-03 18:03:26 Leandro Nelson [facility] BLOOD GAS, ARTERIAL 2023-09-03 18:03:26 Leandro Nelson [facility] SODIUM NA-STAT LAB 2023-09-03 18:03:26 Leandro Nelson [facility] POTASSIUM-STAT LAB 2023-09-03 18:03:26 Danielle Nelsonshua Rubin [facility] GLUCOSE-STAT LAB 2023-09-03 18:03:26 Leandro Nelson Rubin [facility] HGB/HCT (H&H) - STAT LAB 2023-09-03 18:03:[address] [facility] RRL CRITICAL LABS 2023-09-03 17:08:20 Leandro Nelson [facility] (ABG,NA,K,H&H,GLUCOSE) Medical C enter CALCIUM, IONIZED 2023-09-03 17:08:20 Leandro Nelson Rubin [facility] BLOOD GAS, ARTERIAL 2023-09-03 17:08:20 Leandro Nelson [facility] SODIUM NA-STAT LAB 2023-09-03 17:08:20 Leandro Nelson Rubin [facility] POTASSIUM-STAT LAB 2023-09-03 17:08:20 Leandro Nelson [facility] GLUCOSE-STAT LAB 2023-09-03 17:08:20 Leandro Nelson Rubin [facility] HGB/HCT (H&H) - STAT LAB 2023-09-03 17:08:[address] [facility] ROBOTIC 2023-09-03 15:02:00 [facility] HIATAL EGD 2023-09-03 15:02:00 Yunier [facility] es (ESOPHAGOGASTRODUODENOSCO [facility] PY) BASIC METABOLIC PANEL 2023-09-03 04:59:00 Jd [facility] CBC (HEMOGRAM ONLY) 2023-09-03 04:59:00 Jd [facility] MAGNESIUM 2023-09-03 04:59:00 [facility] POCT-GLUCOSE METER 2023-09-02 17:21:00 Cal [facility] ABORH, MANUAL 2023-09-02 09:53:00 Kayley Garcia [facility] PROTHROMBIN TIME/INR 2023-09-02 08:21:00 Karyn [facility] APTT 2023-09-02 08:21:00 Karyn [facility] TYPE AND SCREEN, 2023-09-02 08:21:00 [facility]OL[facility] PANEL 2023-09-02 00:45:00 [facility] (HEMO[facility] ONLY) 2023-09-02 00:45:00 [facility]UM 2023-09-02 00:45:00 Jd [facility] ECG 12-LEAD 2023-09-01 09:25:08 Cal [facility] ECG 12-LEAD 2023-09-01 09:25:08 Unknown, [facility] ECG 12-LEAD 2023-09-01 09:25:08 Unknown, [facility] ECG 12-LEAD 2023-09-01 09:24:46 Unknown, [facility] ECG 12-LEAD 2023-09-01 09:24:46 Unknown, [facility] BASIC METABOLIC PANEL 2023-09-01 04:41:00 Jd [facility] CBC (HEMOGRAM ONLY) 2023-09-01 04:41:00 Jd [facility] MAGNESIUM 2023-09-01 04:41:00 Jd [facility] 2D ECHO W/ DOPPLER 2023-08-31 17:13:44 Ac Bill [facility] (CW/PW/COLOR) [facility] [place] UPPER GI WITH AIR 2023-08-31 15:45:00 Cal [facility] CONTRAST [facility] XR CHEST 1 VIEW PORTABLE 2023-08-31 13:45:00 Cal [facility] CBC W/PLT COUNT & AUTO 2023-08-31 12:23:00 Yunier [facility] DIFFERENTIAL [facility] CBC W/PLT COUNT & AUTO 2023-08-31 12:23:00 [facility] CBC W/PLT COUNT & AUTO 2023-08-31 05:18:00 Dulce Maria Pitts [facility] COMPREHENSIVE METABOLIC 2023-08-31 05:18:00 Dulce Maria Pitts [facility] PANEL [facility] CBC W/PLT COUNT & AUTO 2023-08-31 05:18:00 Dulce Maria Pitts [facility] EKG-SCANNED 2023-08-31 00:00:00 Provider [facility] es [facility] Plan of Care Planned Activity Planned Date Details Comments Source Future Scheduled 2024-08-[address] [facility] Test 00:00[facility]00 [facility] Cent[facility] r Screening (12+) [code = Tobacco Cessation Counseling and Screening (12+)] Future Scheduled 2024-08-[address] [facility] Test 00:00:00 [facility] Medical Cente r Screening (12+) [code = Tobacco Cessation Counseling and Screening (12+)] Future Scheduled 2024-08-[address] [facility] Test 00:00:00 [facility]ing [facility] Medical Cente r Screening (12+) [code = Tobacco Cessation Counseling and Screening (12+)] Future Scheduled 2024-08-[address] [facility] Test 00:00:00 Counseling and Medical Cente r Screening (12+) [code = Tobacco Cessation Counseling and Screening (12+)] Future Scheduled 2023-07-20 Influenza Vaccine (#1) [facility] 00:00:00 [code = Influenza Medical Ce nter Vaccine (#1)] Future Scheduled 2023-07-20 Influenza Vaccine (#1) [facility] 00:00:00 [code = Influenza Medical Ce nter Vaccine (#1)] Future Scheduled 2023-07-20 Influenza Vaccine (#1) [facility] 00:00:00 [code = Influenza Medical Ce nter Vaccine (#1)] Future Scheduled 2023-07-20 Influenza Vaccine (#1) C [...] Medicare IPPE (WELCOME TO MEDICARE)] Future Scheduled 2022-11-[address] [facility] 00:00:00 (12+) [code = Medical Center DEPRESSION SCREENING (12+)] Future Scheduled 2022-11-19 F[address]S [address]ISK SCREENING [facility] Test 00:00:00 [code = FALLS RISK Medical C enter SCREENING] Future Scheduled 2022-11-19 Medicare IPPE (WELCOME [facility] 00:00:00 TO MEDICARE) [code = Medical Center Medicare IPPE (WELCOME TO MEDICARE)] Future Scheduled 2022-11-[address] [facility] Test 00:00:00 (12+) [code = Medical Center DEPRESSION SCREENING (12+)] Future Scheduled 2022-11-19 F[place] RISK SCREENING [facility] Test 00:00:00 [code = FALLS RISK Medical C enter SCREENING] Future Scheduled 2022-11-19 Medicare IPPE (WELCOME [facility] 00:00:00 TO MEDICARE) [code = Medical Center Medicare IPPE (WELCOME TO MEDICARE)] Future Scheduled 2022-11-[address] [...] Center VACCINES (1 of 2)] Future Scheduled 1997 SHINGLES VACCINES ([address] [facility] 00:00:00 of 2) [code = SHINGLES Medic al Center VACCINES (1 of 2)] Future Scheduled 1997 SHINGLES VACCINES ([address] [facility] 00:00:00 of 2) [code = SHINGLES Medic al Center VACCINES (1 of 2)] Future Scheduled 1997 SHINGLES VACCINES ([address] [facility] 00:00:00 of 2) [code = SHINGLES Medic al Center VACCINES (1 of 2)] Future Scheduled 1966 DTAP/TDAP/TD VACCINES [facility] 00:00:00 (1 - Tdap) [code = Medical C enter DTAP/TDAP/TD VACCINES (1 - Tdap)] Future Scheduled 1966 DTAP/TDAP/TD VACCINES [facility] 00:00:00 (1 - Tdap) [code = Medical C enter DTAP/TDAP/TD VACCINES (1 - Tdap)] Future Scheduled 1966 DTAP/TDAP/TD VACCINES [facility] 00:00:00 (1 - Tdap) [code = Medical C enter DTAP/TDAP/TD VACCINES (1 - Tdap)] Future Scheduled 1966 DTAP/TDAP/TD VACCINES [facility] 00:00:00 (1 - Tdap) [code = Medical C enter DTAP/TDAP/TD VACCINES (1 - Tdap)] Future Scheduled 1965 HEPATITIS C SCRE[facility]ING [facility] 00:00:00 [code = HEPATITIS C Medical Center SCREENING] Future Scheduled 1965 HEPATITIS C [facility]CRE[facility] 00:00:00 [code = HEPATITIS C Medical Center SCREENING] Future Scheduled 1965 HEPATITIS C [facility]CRE[facility] 00:00:00 [code = HEPATITIS C Medical Center SCREENING] Future Scheduled 1965 HEPATITIS C [facility]CRE[facility] 00:00:00 [code = HEPATITIS C Medical Center SCREENING] Future Scheduled 1953 PNEUMOCOCCAL 65+ Y[facility] 00:00:00 (1 - PCV) [code = Medical Ce nter PNEUMOCOCCAL 65+ YRS (1 - PCV)] Future Scheduled 1953 PNEUMOCOCCAL 65+ [facility] Test 00:00:00 (1 - PCV) [code = Medical Ce nter PNEUMOCOCCAL 65+ YRS (1 - PCV)] Future Scheduled 1953 PNEUMOCOCCAL 65+ Y[facility] Test 00:00:00 (1 - PCV) [code = Medical Ce nter PNEUMOCOCCAL 65+ YRS (1 - PCV)] Future Scheduled 1953 PNEUMOCOCCAL 65+ Y[facility] Test 00:00:00 (1 - PCV) [code = Medical Ce nter PNEUMOCOCCAL 65+ YRS (1 - PCV)] Future Scheduled 1946-02[birth year]22 COVID-19 VACCINE (#1) [facility] 00:[facility]:00 [code = COVID-[address] VACCINE (#1)] Future Scheduled 1948-02-22 COVID-19 VACCINE (#1) [facility] 00:00:00 [code = COVID-[address] VACCINE (#1)] Future Scheduled 1948-02-22 COVID-19 VACCINE (#1) [facility] 00:00:00 [code = COVID-[address] VACCINE (#1)] Future Scheduled 1948-02-22 COVID-19 VACCINE (#1) [facility] 00:00:00 [code = COVID-[address] VACCINE (#1)] Future Scheduled 1945 DXA SCAN [code = DXA [facility] 00:00:00 SCAN] Medical Center Future Scheduled 1945 DXA SCAN [code = DXA [facility] 00:00:00 SCAN] Medical Center Future Scheduled 1947 DXA SCAN [code = DXA [facility] 00:00:00 SCAN] [facility] Future Scheduled 1947 DXA SCAN [code = DXA [facility] Test 00:00:00 SCAN] Medical Center Encounters Start End Encounter Admission Attending Care Care Encounter Source Date/Time Date/Time Type Type Clinicians Facility Department ID 2023-08-31 Inpatient EL [facility] [id number] [facility] 13:17:44 2023-08-31 2023-09-05 [facility] [id number] 00:17[facility]00 16:22:00 Encounter Dulce Maria Pitts, Carolyne Diaz, Kerrieis [address] [facility] 2023-08-31 2023-09-05 Inpatient ER [facility] [id number] [facility] 00:17:00 16:22:00 [facility] 2023-08-31 2023-09-05 [facility] [id number] 00:17:00 16:22:00 Encounter Dulce Maria Pitts, Carolyne Diaz, Shamis [facility] ter 2023-09-05 2023-09-05 Outpatient [facility] [id number] SLE 00:07:12 00:07:12 ANTWERP 2023-09-04 2023-09-04 Outpatient [facility] [id number] SLE 09:41:14 09:41:14 ANTWERP 2023-09-04 2023-09-04 Outpatient [facility] [id number] [facility] 09:40:54 09:40:54 FARAZ 2023-09-04 2023-09-04 Outpatient [facility] SLE [id number] [facility] 00:03:24 00:03:24 2023-09-03 2023-09-03 Outpatient [facility] [id number] [facility] 21:11:11 21:11:11 JUAN 2023-09-03 2023-09-03 Anesthesia Darlene Scanlon [facility] [id number] 15:02:00 19:30:00 Event Yaritza [facility] 2023-09-03 2023-09-03 Anesthesia Darlene Scanlon [facility] [id number] [facility] 15:02:00 19:30:00 Event Yaritza [facility] 2023-09-03 2023-09-03 Surgery Yunier [facility] [id number] 14:04:00 16:47:00 [facility] 2023-09-03 2023-09-03 Surgery Faye [facility] [id number] 14:04:00 16:47:00 [facility] 2023-09-03 2023-09-03 Outpatient [facility] [id number] [facility] 00:00:00 00:00:00 2023-09-01 2023-09-01 Orders [facility] [id number] 00:00:00 00:00:00 Only [facility] 2023-09-01 2023-09-01 Orders [facility] [id number] 00:00:00 00:00:00 Only [facility] 2023-08-31 2023-08-31 Outpatient [facility] [id number] [facility] 12:24:45 12:24:45 [facility] 2023-08-31 2023-08-31 Outpatient [facility] [id number] [facility] 11:08:30 11:08:30 [facility] 2023-08-31 2023-08-31 Travel [facility] [id number] [facility] 00:00:00 [facility] 2023-08-31 2023-08-31 Travel [facility] [id number] [facility] 00:[facility] 00:00:00 [facility] Results Test Description Test Time Test Comments Results Result Sour e Comments XR CHEST 1 VIEW 2023-09-05 :23:28 [facility] 1945 Sex: F CLINICAL HISTORY: s/p nissenTECHNIQUE: 1 view of the chest.COMPARISON: 09/04/2023IMPRESSION:Nirav ateral chest wall subcutaneous emphysema appears decreased. Tracebiapical pneumothoraces cannot be excluded. There is slightly increasedbibasilar atelectasis. Blunting of left costophrenic angle is noted. Nosignificant cardiomegaly is seen.Electronically Signed By: Tyree Llanos09/05/2023 13:25 CDTWorkstation Name: [id number] POC-Glucose meter 2023-09-05 12:07:36 Test Item Value Reference Range Interpretation Comme nts POC-Glucose Meter (test code = 117 mg/dL 70-110 H : TESTED AT [address] [place] [address], 770 30: Php Architect/Techni barbi ID = [id number] for Marie Tapia a Lab Interpretation (test code = Abnormal 82276-1) [facility] [id number] 12:07:36 Test Item Value Reference Range Interpretation Comments POC-Glucose Meter (test 117 mg/dL 70-110 H : TE STED AT [facility] code = 1538) [address] [place] [address], 770 30: Php Architect/Techni barbi ID = [id number] for Tapia Joseangiet a Lab Interpretation (test Abnormal code = 68349-9) [facility]-Glucose [id number] 12:07:36 Test Item Value Reference Range Interpretation Comments POC-Glucose Meter (test 117 mg/dL 70-110 H : TE STED AT [facility] code = 1538) [address] [facility], 770 30: Php Architect/Techni barbi ID = [id number] for Marie Tapia a Lab Interpretation (test Abnormal code = 47072-0) [facility] [id number] 12:07:36 Test Item Value Reference Range Interpretation Comments POC-Glucose Meter (test 117 mg/dL 70-110 H : TE STED AT [facility] code = 1538) [address] [facility], 770 30: Php Architect/Techni barbi ID = [id number] for Marie Tapia a Lab Interpretation (test Abnormal code = 84929-3) [facility] Hospital[facility]SE [id number] 12:07:36 Test Item Value Reference Range Interpretation Comments POC-GLUCOSE METER 117 mg/dL 70-110 H : TESTED A T [facility] 6720 (BEAKER) (test code = [facility], 1538) [address]: Php Architect/Techni barbi ID = [id number] for Aria King POCT-GLUCOSE [id number] 07:52:52 Test Item Value Reference Range Interpretation Comments POC-GLUCOSE METER 92 mg/dL 70-110 : TESTED A T [facility] 6720 (BEAKER) (test code = [facility], 1538) [address]: Php Architect/Techni barbi ID = [id number] for Aria Bennett [id number] 04:41:43 Test Item Value Reference Range Interpretation Comments MAGNESIUM (BEAKER) (test code = 2.2 mg/dL 1.6-2.6 627) Php Architect ID - BSBASIC METABOLIC [id number] 04:41:42 Test Item Value Reference Range Interpretation [...] not appl icable for dialysis patien ts Php Architect ID - BSCBC (HEMOGRAM ONLY)2023-09-05 04:18:31 Test [...] RED BLOOD CELLS 0 /100 WBC 0-0 ([facility]) (test code = 413) POCT-GLUCOSE [id number] 21:06:57 Test Item Value Reference Range Interpretation Comments POC-GLUCOSE METER 143 mg/dL 70-110 H : TESTED A T [facility] 6720 ([facility]) (test code = [facility], 1538) [address]: Php Architect/Techni barbi ID = [id number] for Ml Chao POCT-GLUCOSE [id number] 15:17:22 Test Item Value Reference Range Interpretation Comments POC-GLUCOSE METER 118 mg/dL 70-110 H : TESTED A T [facility] 6720 ([facility]) (test code = [facility], 1538) [address]: Php Architect/Techni barbi ID = [id number] for Thomas Godwin POCT-GLUCOSE [id number] 12:32:17 Test Item Value Reference Range Interpretation Comments POC-GLUCOSE METER 156 mg/dL 70-110 H : TESTED A T [facility] 6720 ([facility]) (test code [facility], = 1538) [address]88: Php Architect/Techni barbi ID = [id number] for Miguel Angel reid ([facility])[place] [id number] 10:44:08 [facility] : 1945 Sex: FEXAM: Esophagram was performed with water soluble contrast.INDICATION: s/p jennifer. COMPARISON: None.FINDINGS/IMPRESSION:After ingestion of water-soluble contrast, contrast passes readily intothe stomach.No leak of contrast.Fluoroscopy time: 0.77 minutesNumber of images: 12Electronically Signed By: XgvgCboi45/17/2023 10:46 CDTWorkstation Name: [id number] CHEST 1 VIEW PORTABLE / [id number] 10:19:58 [facility] : 1945 Sex: FCLINICAL HISTORY: ChT removal TECHNIQUE: 1 view of the chest.COMPARISON: 09/04/2023IMPRESSION:Left chest tube and NGT removal. Bilateral chest wall subcutaneousemphysema is again noted. There is no definite pneumothorax.No lobar consolidation or significant pleural fluid. No cardiomegaly. New oral contrast seen in the stomach.Electronically Signed By: Tyree Llanos09/04/2023 10:22 CDTWorkstation Name: [id number] CHEST 1 VIEW PORTABLE / [id number] 06:15:27 [facility] TR[facility]TY[facility]ATT R : 1945 Sex: FCLINICAL HISTORY: s/p nissenTECHNIQUE: 1 view of the chest.COMPARISON: 09/03/2023IMPRESSION:The supporting lines and tubes are similar appearing. Left asymmetricchest wall subcutaneous emphysema appears slightly decreased. A traceleft apical pneumothorax is again suspected. Bibasilar lung opacitiesand blunting of the costophrenic angles are again seen. No cardiomegaly.Electronically Signed By: Tyree Llanos09/04/2023 06:17 CDTWorkstation Name: [id number] 05:57:55 Test Item Value Reference Range Interpretation Comments MAGNESIUM (BEAKER) (test code = 2.4 mg/dL 1.6-2.6 627) Php Architect ID - [id number] 05:57:55 Test Item Value Reference Range Interpretation Comments PHOSPHORUS (BEAKER) (test code = 2.8 mg/dL 2.3-4.7 604) Php Architect ID - EMBASIC METABOLIC [id number] 05:57:54 Test Item Value Reference Range Interpretation [...] not appl icable for dialysis patien ts Php Architect ID - EMCBC (HEMOGRAM ONLY)2023-09-04 05:42:44 Test [...] (BEAKER) (test code = 413) Blood gas, [id number] 05:40:17 Test Item Value Reference Range Interpretation Comments pH, Arterial (test code 7.45 7.35-7.45 = 2744-1) pCO2, Arterial (test 35 See_Comment [Autom ated code = 2018-) message] The system which generated this result [...] 28.0 Lab Interpretation Abnormal (test code = 18810-9) [facility] HospitalBlood gas, [id number] 05:40:17 Test Item Value Reference Range Interpretation Comments pH, Arterial (test code 7.45 7.35-7.45 = 2744-1) pCO2, Arterial (test 35 See_Comment [Autom ated code = 2019-06) message] The system which generated this result [...] 28.0 Lab Interpretation Abnormal (test code = 10932-4) [facility] HospitalBl[facility] gas, [id number] 05:40:17 Test Item Value Reference Range Interpretation Comments pH, Arterial (test code 7.45 7.35-7.45 = 2744-1) pCO2, Arterial (test 35 See_Comment [Autom ated code = 2019-06) message] The system which generated this result [...] 28.0 Lab Interpretation Abnormal (test code = 63870-2) [facility] HospitalBlood gas, [id number] 05:40:17 Test Item Value Reference Range Interpretation Comments pH, Arterial (test code 7.45 7.35-7.45 = 2744-1) pCO2, Arterial (test 35 See_Comment [Autom ated code = 2019-06) message] The system which generated this result [...] 28.0 Lab Interpretation Abnormal (test code = 52669-9) [facility]BL[facility] GAS, [id number] 05:40:17 Test Item Value Reference Range Interpretation [...] 21-29 = 388) BASE EXCESS ARTERIAL (BEAKER) -0.3 mmol/L -2.0-3.0 (test code = 387) PATIENT TEMPERATURE (BEAKER) 36.5 (test code = 1818) FIO2 (BEAKER) (test code = 1819) 28.0 BASIC METABOLIC [id number] 23:55:58 Test Item Value Reference Range Interpretation [...] not appl icable for dialysis patien ts Php Architect ID - [id number] 23:55:57 Test Item Value Reference Range Interpretation Comments MAGNESIUM (BEAKER) 1.7 mg/dL 1.6-2.6 Specimen slightly (test code = 627) hemolyzed Php Architect ID - [id number] 23:55:57 Test Item Value Reference Range Interpretation Comments PHOSPHORUS (BEAKER) 3.7 mg/dL 2.3-4.7 Specimen slightly (test code = 604) hemolyzed Php Architect ID - BSCBC (HEMOGRAM ONLY)2023-09-03 23:35:58 Test [...] 413) XR CHEST 1 VIEW PORTABLE / [id number] 23:24:53 [facility] : 1945 Sex: FEXAM: XR CHEST 1 [...] study.Electronically Signed By:Sandi Craig09/03/2023 23:26 CDTWorkstation Name: [id number] Acid, [id number] 21:37:24 Test Item Value Reference Range Interpretation Comments Lactate, Art (test 0.8 mmol/L 0.5-2.0 Specimen code = 2874) slightly hemolyzed ANSHUL (test code = ANSHUL) Php Architect ID - BS Lab Interpretation Normal (test code = 30415-4) [facility] HospitalLactic Acid, [id number] 21:37:24 Test Item Value Reference Range Interpretation Comments Lactate, Art (test 0.8 mmol/L 0.5-2.0 Specimen code = 2874) slightly hemolyzed ANSHUL (test code = ANSHUL) Php Architect ID - BS Lab Interpretation Normal (test code = 13531-4) [facility] HospitalLactic Acid, [id number] 21:37:24 Test Item Value Reference Range Interpretation Comments Lactate, Art (test 0.8 mmol/L 0.5-2.0 Specimen code = 2874) slightly hemolyzed ANSHUL (test code = ANSHUL) Php Architect ID - BS Lab Interpretation Normal (test code = 52409-4) [facility] HospitalLactic Acid, [id number] 21:37:24 Test Item Value Reference Range Interpretation Comments Lactate, Art (test 0.8 mmol/L 0.5-2.0 Specimen code = 2874) slightly hemolyzed ANSHUL (test code = ANSHUL) Php Architect ID - BS Lab Interpretation Normal (test code = 05938-6) [facility] HospitalLACTIC ACID, [id number] 21:37:24 Test Item Value Reference Range Interpretation Comments LACTATE BLOOD 0.8 mmol/L 0.5-2.0 Specimen sligh tly ARTERIAL (2) (BEAKER) hemoly zed (test code = 2874) Php Architect ID - BSBLOOD GAS, [id number] 21:31:15 Test Item Value Reference Range Interpretation [...] (BEAKER) (test code = 1819) 44.0 Potassium-Stat [id number] 21:29:46 Test Item Value Reference Range Interpretation Comments Potassium (test code = 2823-3) 3.4 meq/L 3.6-5.5 L Lab Interpretation (test code = Abnormal 02847-8) [facility] HospitalPotassium-Stat [id number] 21:29:46 Test Item Value Reference Range Interpretation Comments Potassium (test code = 2823-3) 3.4 meq/L 3.6-5.5 L Lab Interpretation (test code = Abnormal 23570-3) [facility] HospitalPotassium-Stat [id number] 21:29:46 Test Item Value Reference Range Interpretation Comments Potassium (test code = 2823-3) 3.4 meq/L 3.6-5.5 L Lab Interpretation (test code = Abnormal 31449-7) [facility] HospitalPotassium-Stat [id number] 21:29:46 Test Item Value Reference Range Interpretation Comments Potassium (test code = 2823-3) 3.4 meq/L 3.6-5.5 L Lab Interpretation (test code = Abnormal 55849-4) [facility] HospitalPOTASSIUM-STAT [id number] 21:29:46 Test Item Value Reference Range Interpretation Comments POTASSIUM (BEAKER) (test code = 3.4 meq/L 3.6-5.5 L 379) CALCIUM, [id number] 21:29:45 Test Item Value Reference Range Interpretation Comments CALCIUM IONIZED (BEAKER) (test 1.10 mmol/L 1.12-1.27 L code = 698) PH, BLOOD (BEAKER) (test code = 7.40 1810) HGB/HCT (H&H)-Stat [id number] 21:28:27 Test Item Value Reference Range Interpretation Comments Hemoglobin (test code = 12.2 See_Comment [Au tomated message] 896-1) The system [email or web address] generated this result transmitted ref erence range: 12.0 - 1 5.0 GM/DL. The refe rence range was not u sed to interpret this result as normal/abnor mal. Hematocrit (test code = 36.0 % 36.0-45.0 4544-3) Lab Interpretation (test Normal code = 96610-9) [facility] Na-Stat [id number] 21:28:27 Test Item Value Reference Range Interpretation Comments Sodium (test code = 2951-2) 137 meq/L 136-145 Lab Interpretation (test code = Normal 82679-4) [facility] HospitalHGB/HCT (H&H)-Stat [id number] 21:28:27 Test Item Value Reference Range Interpretation Comments Hemoglobin (test code = 12.2 See_Comment [Au tomated message] 501-9) The system [email or web address] generated this result transmitted ref erence range: 12.0 - 1 5.0 GM/DL. The refe rence range was not u sed to interpret this result as normal/abnor mal. Hematocrit (test code = 36.0 % 36.0-45.0 4544-3) Lab Interpretation (test Normal code = 28859-5) [facility] Na-Stat [id number] 21:28:27 Test Item Value Reference Range Interpretation Comments Sodium (test code = 2951-2) 137 meq/L 136-145 Lab Interpretation (test code = Normal 35404-8) [facility] HospitalHGB/HCT (H&H)-Stat [id number] 21:28:27 Test Item Value Reference Range Interpretation Comments Hemoglobin (test code = 12.2 See_Comment [Au tomated message] 141-1) The system [email or web address] generated this result transmitted ref erence range: 12.0 - 1 5.0 GM/DL. The refe rence range was not u sed to interpret this result as normal/abnor mal. Hematocrit (test code = 36.0 % 36.0-45.0 4544-3) Lab Interpretation (test Normal code = 49627-1) [facility] Na-Stat [id number] 21:28:27 Test Item Value Reference Range Interpretation Comments Sodium (test code = 2951-2) 137 meq/L 136-145 Lab Interpretation (test code = Normal 17636-6) [facility] HospitalH[facility]HCT (H&H)-Stat [id number] 21:28:27 Test Item Value Reference Range Interpretation Comments Hemoglobin (test code = 12.2 See_Comment [Au tomated message] 335-7) The system [email or web address] generated this result transmitted ref erence range: 12.0 - 1 5.0 GM/DL. The refe rence range was not u sed to interpret this result as normal/abnor mal. Hematocrit (test code = 36.0 % 36.0-45.0 4544-3) Lab Interpretation (test Normal code = 80539-2) [facility] Na-Stat [id number] 21:28:27 Test Item Value Reference Range Interpretation Comments Sodium (test code = 2951-2) 137 meq/L 136-145 Lab Interpretation (test code = Normal 50509-9) [facility] NA-STAT [id number] 21:28:27 Test Item Value Reference Range Interpretation Comments SODIUM (BEAKER) (test code = 381) 137 meq/L 136-145 HGB/HCT (H&H) - STAT [id number] 21:28:27 Test Item Value Reference Range Interpretation Comments HEMOGLOBIN (BEAKER) (test code = 12.2 GM/DL 12.0-15.0 410) HEMATOCRIT (BEAKER) (test code = 36.0 % 36.0-45.0 411) Glucose-Stat [id number] 21:28:26 Test Item Value Reference Range Interpretation Comments Glucose (test code = 2345-7) 146 mg/dL 70-110 H Lab Interpretation (test code = Abnormal 48872-6) [facility] HospitalGlucose-Stat [id number] 21:28:26 Test Item Value Reference Range Interpretation Comments Glucose (test code = 2345-7) 146 mg/dL 70-110 H Lab Interpretation (test code = Abnormal 16901-4) [facility] HospitalGlucose-Stat [id number] 21:28:26 Test Item Value Reference Range Interpretation Comments Glucose (test code = 2345-7) 146 mg/dL 70-110 H Lab Interpretation (test code = Abnormal 91823-7) [facility] HospitalGlucose-Stat [id number] 21:28:26 Test Item Value Reference Range Interpretation Comments Glucose (test code = 2345-7) 146 mg/dL 70-110 H Lab Interpretation (test code = Abnormal 78876-0) [facility] HospitalGLUCOSE-STAT [id number] 21:28:26 Test Item Value Reference Range Interpretation Comments GLUCOSE RANDOM (BEAKER) (test code 146 mg/dL 70-110 H = 652) BLOOD GAS, [id number] 20:13:48 Test Item Value Reference Range Interpretation [...] (BEAKER) (test code = 1819) 44.0 POTASSIUM-STAT [id number] 20:12:59 Test Item Value Reference Range Interpretation Comments POTASSIUM (BEAKER) (test code = 3.8 meq/L 3.6-5.5 379) HGB/HCT (H&H) - STAT [id number] 20:12:59 Test Item Value Reference Range Interpretation Comments HEMOGLOBIN (BEAKER) (test code = 12.6 GM/DL 12.0-15.0 410) HEMATOCRIT (BEAKER) (test code = 37.0 % 36.0-45.0 411) GLUCOSE-STAT [id number] 20:12:58 Test Item Value Reference Range Interpretation Comments GLUCOSE RANDOM (BEAKER) (test code 148 mg/dL 70-110 H = 652) SODIUM NA-STAT [id number] 20:12:58 Test Item Value Reference Range Interpretation Comments SODIUM (BEAKER) (test code = 381) 136 meq/L 136-145 BLOOD GAS, [id number] 18:09:21 Test Item Value Reference Range Interpretation [...] = 1819) 52.0 HGB/HCT (H&H) - STAT [id number] 18:09:21 Test Item Value Reference Range Interpretation Comments HEMOGLOBIN (BEAKER) (test code = 11.3 GM/DL 12.0-15.0 L 410) HEMATOCRIT (BEAKER) (test code = 33.0 % 36.0-45.0 L 411) CALCIUM, [id number] 18:09:20 Test Item Value Reference Range Interpretation Comments CALCIUM IONIZED (BEAKER) (test 1.28 mmol/L 1.12-1.27 H code = 698) PH, BLOOD (BEAKER) (test code = 7.27 1810) POTASSIUM-STAT [id number] 18:09:04 Test Item Value Reference Range Interpretation Comments POTASSIUM (BEAKER) (test code = 4.4 meq/L 3.6-5.5 379) GLUCOSE-STAT [id number] 18:08:59 Test Item Value Reference Range Interpretation Comments GLUCOSE RANDOM (BEAKER) (test code 157 mg/dL 70-110 H = 652) SODIUM NA-STAT [id number] 18:08:59 Test Item Value Reference Range Interpretation Comments SODIUM (BEAKER) (test code = 381) 136 meq/L 136-145 CALCIUM, [id number] 17:16:13 Test Item Value Reference Range Interpretation Comments CALCIUM IONIZED (BEAKER) (test 1.51 mmol/L 1.12-1.27 H code = 698) PH, BLOOD (BEAKER) (test code = 7.26 1810) BLOOD GAS, [id number] 17:16:13 Test Item Value Reference Range Interpretation [...] = 1819) 100.0 HGB/HCT (H&H) - STAT [id number] 17:14:53 Test Item Value Reference Range Interpretation Comments HEMOGLOBIN (BEAKER) (test code = 12.3 GM/DL 12.0-15.0 410) HEMATOCRIT (BEAKER) (test code = 36.0 % 36.0-45.0 411) GLUCOSE-STAT [id number] 17:14:52 Test Item Value Reference Range Interpretation Comments GLUCOSE RANDOM (BEAKER) (test code 158 mg/dL 70-110 H = 652) SODIUM NA-STAT [id number] 17:14:52 Test Item Value Reference Range Interpretation Comments SODIUM (BEAKER) (test code = 381) 137 meq/L 136-145 POTASSIUM-STAT [id number] 17:14:52 Test Item Value Reference Range Interpretation Comments POTASSIUM (BEAKER) (test code = 3.5 meq/L 3.6-5.5 L 379) BASIC METABOLIC [id number] 07:04:52 Test Item Value Reference Range Interpretation [...] not appl icable for dialysis patien ts Php Architect ID - [id number] 07:04:52 Test Item Value Reference Range Interpretation Comments MAGNESIUM (BEAKER) (test code = 1.8 mg/dL 1.6-2.6 627) Php Architect ID - BSCBC (HEMOGRAM ONLY)2023-09-03 06:27:25 Test [...] 0-0 (BEAKER) (test code = 413) POCT-GLUCOSE [id number] 17:32:40 Test Item Value Reference Range Interpretation Comments POC-GLUCOSE METER 99 mg/dL 70-110 : TESTED A T [facility] 6720 (BEAKER) (test code = [place], 1538) [address]: Php Architect/Techni barbi ID = [id number] for ZA CASTRO [id number] 08:40:28 Test Item Value Reference Range Interpretation Comments PARTIAL THROMBOPLASTIN TIME 25.6 seconds 22.5-36.0 (BEAKER) (test code = 760) PROTHROMBIN TIME/[id number] 08:39:46 Test Item Value Reference Range Interpretation Comments PROTIME (BEAKER) (test code = 14.2 seconds 11.9-14.2 759) INR (BEAKER) (test code = 370) 1.09 <=5.90 RECOMMENDED COUMADIN/WARFARIN INR THERAPY RANGESSTANDARD DOSE: 2.0 - 3.0 Includes: PROPHYLAXIS for venous thrombosis, systemic embolization; TREATMENT for venous thrombosis and/or pulmonary embolus.HIGH RISK: Target INR is 2.5-3.5 for patients with mechanical heart valves.[id number] 01:48:20 Test Item Value Reference Range Interpretation Comments MAGNESIUM (BEAKER) (test code = 1.8 mg/dL 1.6-2.6 627) Php Architect ID - BSBASIC METABOLIC [id number] 01:48:19 Test Item Value Reference Range Interpretation [...] not appl icable for dialysis patien ts Php Architect ID - BSCBC (HEMOGRAM ONLY)2023-09-02 01:24:57 Test [...] (BEAKER) (test code = 413) BASIC METABOLIC [id number] 05:42:14 Test Item Value Reference Range Interpretation [...] not appl icable for dialysis patien ts Php Architect ID - [id number] 05:42:14 Test Item Value Reference Range Interpretation Comments MAGNESIUM (BEAKER) (test code = 2.0 mg/dL 1.6-2.6 627) Php Architect ID - ADMINCBC (HEMOGRAM ONLY)2023-09-01 05:14:42 Test [...] 413) XR CHEST 1 VIEW PORTABLE / [id number] 04:16:57 [facility] 1945 Sex: [...] Signed By: Parish Rivera09/01/2023 04:19 CDTWorkstation Name: [id number] UPPER GI WITH AIR [id number] 17:36:57 [facility] Aura : 1945 Sex: FFL UPPER GI WITH AIR CONTRASTCLINICAL HISTORY: eval for outlet obstruction, large hiatal herniaCOMPARISON: None.TECHNIQUE: A senior applications developer abdominal radiograph is acquired. The esophagus,stomach, and small bowelis evaluated with single contrast techniqueafter oral ingestion of Gastrografin contrast using AP abd ominalradiographs. Fluoroscopy time: 1.47 minutesDose: 6517 xTxe1Hwyltr of images: 154FINDINGS: Initial senior applications developer radiograph was obtained. Images demonstrate anonobstructive bowel [...] the level of the diaphragm.2. Large malrotated paraesop hageal hernia.3. No evidence of gastric outlet obstruction, as questioned.Electronically Signed By: Michelle Krishnan08/31/2023 17:40 CDTWorkstation Name: [id number] W/PLT COUNT & AUTO [id number] 12:51:50 Test Item Value Reference Range Interpretation [...] (BEAKER) (test code = 2801) COMPREHENSIVE METABOLIC [id number] 06:25:29 Test Item Value Reference Range Interpretation [...] not appl icable for dialysis patien ts Php Architect ID - MARCOCBC W/PLT COUNT & AUTO [id number] 06:21:00 Test Item Value Reference Range Interpretation [...] % 0.00-1.00 PERCENT (BEAKER) (test code = 280)
[2023-09-27 17:31] LABS: Specific Gravity 1.005 (1.005-1.030); Urine Bilirubin NEGATIVE (Negative); Urine Blood Negative (Negative); Urine Clarity Clear (Clear); Urine Color Colorless (Yellow); Urine Glucose NEGATIVE (Negative); Urine Protein NEGATIVE (Negative); Urine Urobilinogen Normal (Normal)
[2023-09-27 17:33] LABS: Hematocrit 36.7 % (36.0-45.0); Lymphocytes % 18.8 % (15.3-44.8); MCV 91.6 fL (80-100); MPV 6.7 fL (7.6-11.3); Platelets 407 thou/uL (152-406); RBC Red Blood Cell Count 4.01 M/uL (3.86-4.86)
--- NOTE | 2023-09-27 17:43 | RAD REPORT ---
EXAM DESCRIPTION: RADChest Single View09/27/2023 5:03 pm CLINICAL HISTORY: elevated blood pressure COMPARISON: Chest Single View dated 09/13/2023; Chest Single View dated 08/30/2023 TECHNIQUE: Portable AP view of the chest. FINDINGS: The lungs are clear. No pneumothorax or effusion. The cardiomediastinal contours are unre markable. IMPRESSION: No acute cardiopulmonary process.
[2023-09-27 17:51] LABS: Magnesium 2.3 mg/dL (1.6-2.4); Potassium 3.3 mEq/L (3.5-5.1); Troponin High Sensitivity 5.6 pg/mL (<58.9)
--- NOTE | 2023-09-27 19:10 | EDPHYS ---
Physician Documentation [facility] Name: Annalisa José Age: 78 yrs Sex: Female : 1945 Arrival Date: 09/27/2023 Time: 16:18 Bed IW3 Private MD: ED Physician William Meraz HPI: 09/27 16:40 This 78 yrs old Female presents to ER via Wheelchair with complaints of High cp Blood Pressure. 16:40 The patient has elevated blood pressure and discovered this at home, with a home device.cp 16:40 Onset: The symptoms/episode began/occurred today. Severity of symptoms: At its worst cp the blood pressure was systolic pressure in 200's, in the emergency department the blood pressure is improved, mildly, 191 mm Hg. 16:40 Associated signs and symptoms: Pertinent positives: dizziness, nausea, weakness, cp Pertinent negatives: chest pain, vomiting. Historical: - Allergies: 16:29 PENICILLINS; kd3 16:29 Morphine; kd3 - PMHx: 16:29 Hypertensive disorder; kd3 - PSHx: 16:29 section; stomach/hernia SX (an); kd3 - Immunization history:: Adult Immunizations up to date. - Social history:: Smoking status: Patient denies any tobacco usage or history of. ROS: 16:45 Constitutional: Negative for body aches, chills, fever, poor PO intake, cp 16:45 Eyes: Negative for injury, pain, redness, and discharge, cp 16:45 ENT: Negative for drainage from ear(s), ear pain, sore throat, difficulty swallowing, difficulty handling secretions, 16:45 Cardiovascular: Negative for chest pain, edema, 16:45 Respiratory: Negative for cough, shortness of breath, wheezing, 16:45 Abdomen/GI: Positive for nausea, Negative for abdominal pain, vomiting, diarrhea, constipation, 16:45 Neuro: Positive for dizziness, weakness, Negative for altered mental status, headache, 16:45 All other systems are negative, Exam: 16:38 ECG was reviewed by the Attending Physician. cp Vital Signs: 16:27 Pulse 93; Resp 16; Temp 98.7(O); Pulse Ox 94% on R/A; Weight 54.88 kg; Height 4 ft. 11 kd3 in. ; 16:28 BP 191 / 96; Pulse 87; Resp 17; Pulse Ox 95% on R/A; kd3 16:38 BP 170 / 90; Pulse 95; Resp 16; Pulse Ox 95% on R/A; kd3 19:14 BP 163 / 86; Pulse 86; Resp 16; Pulse Ox 99% on R/A; kd3 16:27 Body Mass Index 24.44 (54.88 kg, 149.86 cm) kd3 MDM: 16:33 Patient medically screened. 19:10 Data reviewed: vital signs, nurses notes, lab test result(s), EKG, radiologic studies, cp plain films. 19:10 I considered the following discharge prescriptions or medication management in the emergency department Medications were administered in the Emergency Department. See MAR. Test considered but Not performed: CT: head. Counseling: I had a detailed discussion with the patient and/or guardian regarding the historical points, exam findings, and any diagnostic results supporting the discharge/admit diagnosis, lab results, radiology results, to return to the emergency department if symptoms worsen or persist or if there are any questions or concerns that arise at home. Response to treatment: the patient's symptoms have mildly improved after treatment, and as a result, I will discharge patient. Refusal of service: The patient/guardian displays adequate decision making capability and despite a detailed discussion of alternatives, benefits, risks, and consequences refuses: CT Scan. 09/27 16:34 Order name: Basic Metabolic Panel; Complete Time: 18:08 09/27 18:08 Interpretation: Normal except: NA 135; K 3.3; GLUC 132; GFR 71. 09/27 16:34 Order name: CBC with Diff; Complete Time: 18:08 09/27 16:34 Order name: Magnesium; Complete Time: 18:08 09/27 16:34 Order name: NT PRO-BNP; Complete Time: 18:08 09/27 16:34 Order name: Troponin HS; Complete Time: 18:08 09/27 16:34 Order name: Urinalysis w/ reflexes; Complete Time: 18:08 09/27 16:34 Order name: XRAY Chest (1 view); Complete Time: 18:08 09/27 16:34 Order name: EKG; Complete Time: 16:36 09/27 16:34 Order name: Cardiac monitoring; Complete Time: 19:17 09/27 16:34 Order name: EKG - Nurse/Tech; Complete Time: 17:18 09/27 16:34 Order name: IV Saline Lock; Complete Time: 17:18 09/27 16:34 Order name: Labs collected and sent; Complete Time: 17:18 09/27 16:34 Order name: O2 Per Protocol; Complete Time: 17:18 09/27 16:34 Order name: O2 Sat Monitoring; Complete Time: 17:18 09/27 16:34 Order name: Accucheck Blood Glucose; Complete Time: 19:17 EC:38 Rate is 90 beats/min. Rhythm is regular. NH interval is normal. QRS interval is normal. cp QT interval is normal. Interpreted by me. Reviewed by me. Administered Medications: 19:13 Drug: Meclizine PO 25 mg PO once Route: PO; kd3 19:13 Drug: Potassium PO Effervescent Tablet 50 mEq PO once; dissolve in 4 ounces of water or kd3 juice Route: PO; 19:14 Not Given (Patient Refused): ativan0.5 mg IVP once kd3 Disposition: 19:29 I was immediately available on-site in the Emergency Department for consultation in the ms3 care of the patient. Disposition Summary: 09/27/23 19:10 Discharge Ordered Notes: Location: Home cp Problem: an acute exacerbation cp Symptoms: have improved cp Condition: Stable cp Diagnosis - Hypertensive heart disease without heart failure cp - Dizziness and giddiness cp Followup: cp - With: Private Physician - When: 2 - 3 days - Reason: Recheck today's complaints Discharge Instructions: - Discharge Summary Sheet cp - Dizziness cp - Hypertension, Adult cp - Form - Blood Pressure Record Sheet cp - How to Take Your Blood Pressure cp Forms: - Medication Reconciliation Form cp - Thank You Letter cp - Antibiotic Education cp - Prescription Opioid Use cp - Patient Portal Instructions cp - Leadership Thank You Letter cp Signatures: Dispatcher [employer] EDMS Ross Brewster PA PA cp Sims, Marcus, DO ms3 Caroline Tovar, RN RN kd3 Corrections: (The following items were deleted from the chart) 19:16 18:11 Head Brain Wo Cont+CT.RAD.BRZ ordered. EDMS EDMS
--- NOTE | 2023-09-27 19:10 | ER ---
Nurse's Notes [facility] Name: Annalisa José Age: 78 yrs Sex: Female : 1945 Arrival Date: 09/27/2023 Time: 16:18 Bed IW3 Private MD: Diagnosis: Hypertensive heart disease without heart failure;Dizziness and giddiness Presentation: 09/27 16:28 Ebola Screen: No symptoms or risks identified at this time. Initial Sepsis Screen: Does kd3 the patient meet any 2 criteria? No. Patient's initial sepsis screen is negative. Does the patient have a suspected source of infection? No. Patient's initial sepsis screen is negative. Risk Assessment: Do you want to hurt yourself or someone else? Patient reports no desire to harm self or others. 16:28 Method Of Arrival: Wheelchair kd3 16:28 Acuity: JOSE DAVID 3 kd3 16:28 Chief complaint: Patient states: My blood pressure was in the 200's today. I am very kd3 jittery and nauseous. Coronavirus screen: Vaccine status: Patient reports receiving the 2nd dose of the covid vaccine. Onset of symptoms was September 27, 2023. Triage Assessment: 16:30 General: Appears uncomfortable. General: Behavior is calm, cooperative. Pain: Denies kd3 pain. Historical: - Allergies: 16:29 PENICILLINS; kd3 16:29 Morphine; kd3 - PMHx: 16:29 Hypertensive disorder; kd3 - PSHx: 16:29 section; stomach/hernia SX (an); kd3 - Immunization history:: Adult Immunizations up to date. - Social history:: Smoking status: Patient denies any tobacco usage or history of. Screenin:16 [facility] ED Fall Risk Assessment (Adult) History of falling in the last 3 months, kd3 including since admission No falls in past 3 months (0 pts) Confusion or Disorientation No (0 pts) Intoxicated or Sedated No (0 pts) Impaired Gait No (0 pts) Mobility Assist Device Used No (0 pt) Altered Elimination No (0 pt) Score/Fall Risk Level 0 - 2 = Low Risk Maintained a safe environment. Abuse screen: Denies threats or abuse. Denies injuries from another. Nutritional screening: No deficits noted. Tuberculosis screening: No symptoms or risk factors identified. Vital Signs: 16:27 Pulse 93; Resp 16; Temp 98.7(O); Pulse Ox 94% on R/A; Weight 54.88 kg; Height 4 ft. 11 kd3 in. ; 16:28 BP 191 / 96; Pulse 87; Resp 17; Pulse Ox 95% on R/A; kd3 16:38 BP 170 / 90; Pulse 95; Resp 16; Pulse Ox 95% on R/A; kd3 19:14 BP 163 / 86; Pulse 86; Resp 16; Pulse Ox 99% on R/A; kd3 16:27 Body Mass Index 24.44 (54.88 kg, 149.86 cm) kd3 ED Course: 16:19 Patient arrived in ED. rg4 16:28 Triage completed. kd3 16:29 Ross Brewster PA is PHCP. cp 16:29 William Meraz DO is Attending Physician. cp 16:30 Arm band placed on left wrist. kd3 17:05 XRAY Chest (1 view) In Process Unspecified. EDMS 17:18 Urinalysis w/ reflexes Sent. kd3 17:18 Basic Metabolic Panel Sent. kd3 17:18 CBC with Diff Sent. kd3 17:18 Magnesium Sent. kd3 17:18 NT PRO-BNP Sent. kd3 17:18 Troponin HS Sent. kd3 17:18 Inserted saline lock: 20 gauge in right antecubital area, using aseptic technique. kd3 Blood collected. 19:17 Patient has correct armband on for positive identification. Provided Education on: . kd3 19:17 No provider procedures requiring assistance completed. IV discontinued, intact, kd3 bleeding controlled, No redness/swelling at site. Pressure dressing applied. Administered Medications: 19:13 Drug: Meclizine PO 25 mg PO once Route: PO; kd3 19:13 Drug: Potassium PO Effervescent Tablet 50 mEq PO once; dissolve in 4 ounces of water or kd3 juice Route: PO; 19:14 Not Given (Patient Refused): ativan0.5 mg IVP once kd3 Medication: 19:17 VIS not applicable for this client. kd3 Outcome: 19:10 Discharge ordered by . cp 19:17 Discharged to home via wheelchair, with family, kd3 19:17 Condition: stable 19:17 Discharge instructions given to patient, family, Instructed on discharge instructions, follow up and referral plans. Demonstrated understanding of instructions, follow-up care, 19:17 Patient left the ED. kd3 Signatures: Dispatcher [employer] EDMS Ross Brewster PA PA cp Garcia, Rubi rg4 Caroline Tovar, RN RN kd3
[2023-09-27] MEDS ORDERED: MECLIZINE HCL 12.5 MG TAB ONE (19:22)
[2023-09-27] MEDS ORDERED: POTASSIUM 25 MEQ EFFERV TAB ONE (19:22)
[2023-09-27 19:38] VITALS: TEMP 98.7
[2023-09-27 19:43] VITALS: BP 163/86; O2SAT 99
--- NOTE | 2023-09-29 14:12 | EKG ---
Test Date: 2023-09-27 Test Time: 17:37:29 A R Specialist: KIARA MEASUREMENT RESULTS: Intervals: Rate: 90 NE: 152 QRSD: 78 QT: 358 QTc: 437 [place]: P: 68 NE: 152 QRS: 36 T: 54 INTERPRETIVE STATEMENTS: Sinus rhythm with frequent premature ventricular complexes Otherwise normal ECG Compared to ECG 09/13/2023 13:39:09 Ventricular premature complex(es) now present Myocardial infarct finding no longer present Electronically Signed On 09-29-23 14:07:54 [employer]SEM[employer] by Billy De Anda
== END 2023-09-27 19:17 | disposition home or self-care (01) ==
LOC: ER 16:18
DX: I11.9 Hypertensive heart disease without heart failure (principal); R11.0 Nausea; I10 Essential (primary) hypertension; Z88.0 Allergy status to penicillin; Z88.5 Allergy status to narcotic agent
CPT/HCPCS: 93005; 85025; 80048; 36415; 83735; 81003; 84484; 83880; 71045; 99284; J8597

== ENCOUNTER 2024-10-20 17:04 | Emergency (ER) | payer OTHER ==
--- NOTE | 2024-10-20 18:18 | RAD REPORT ---
EXAM: CT Head Brain Wo Cont HISTORY: HEADACHE COMPARISON: 08/30/2023 TECHNIQUE: Multiple contiguous axial images were obtained for a CT of the brain without contrast. Sag ittal and coronal reformats were performed. One or more of the following dose reduction techniques were used: Automated exposure control, adjus tment of the mA and kV according to patient size, and iterative reconstruction. Unless otherwise specified, incidental findings do not require dedicated imaging follow-up. FINDINGS: No evidence of hydrocephalus, intracranial hemorrhage, or extra-axial fluid collection. The brain is normal in morphology. The calvarium is intact. The visualized paranasal sinuses and mastoid air cells are essentially clear . IMPRESSION: No evidence of acute intracranial abnormality.
[2024-10-20 19:35] LABS: Absolute Basophils 0.1 K/uL (0-0.5); Absolute Monocytes 0.3 K/uL (0.1-1.3); Absolute Neutrophil 11.8 K/uL (1.8-8.0); Basophils % 0.6 % (0-1.3); Eosinophils % 0.1 % (0-4.4); Hematocrit 41.1 % (36.0-45.0); Hemoglobin 13.8 g/dL (12.0-15.0); Lymphocytes % 7.7 % (15.3-44.8); MCH 30.5 pg (27.0-35.0); MCHC 33.7 g/dL (32.0-36.0); MCV 90.4 fL (80-100); MPV 6.8 fL (7.6-11.3); Monocytes % 2.5 % (3.3-12.3); Neutrophils % 89.1 % (41.7-73.7); Nucleated Red Blood Cells % 0.1 % (0-0); Platelets 364 thou/uL (152-406); RBC Red Blood Cell Count 4.54 M/uL (3.86-4.86); Red Cell Distribution Width 13.3 % (12.1-15.2)
[2024-10-20 19:42] LABS: Anion Gap 10.4 mEq/L (5.0-15.0); Potassium 3.4 mEq/L (3.5-5.1); Troponin High Sensitivity 6.8 pg/mL (<58.9)
[2024-10-20] MEDS ORDERED: DIPHENHYDRAMINE 50 MG/ML VIAL ONE (20:03)
[2024-10-20] MEDS ORDERED: NA CHLORIDE 0.9% 0 ML ONE (20:03)
[2024-10-20] MEDS ORDERED: NA CHLORIDE 0.9% 250 ML ONE (20:03)
[2024-10-20] MEDS ORDERED: METOCLOPRAMIDE 10 MG/2mL INJ ONE (20:03)
[2024-10-20 20:20] LABS: Blood Morphology Comment NOT SEEN (NOT SEEN); Platelet Estimate ADEQ; White Blood Cell Scan OK (OK)
--- NOTE | 2024-10-20 22:11 | RAD REPORT ---
EXAMINATION: CT Abdomen Pelvis W Contrast CLINICAL INDICATION: Female, 79 years old. ABD PAIN TECHNIQUE: CT abdomen and pelvis was performed, after the administration of IV contrast, [facility]. Axial, sagittal and coronal reconstructions were obtained. One or more of the following dose reduction techniques were used: Automated exposure control, adjustment of the mA and k V according to patient size, and iterative reconstruction. Unless otherwise specified, incidental findings do not require dedicated imaging follow-up. COMPARISON: 09/13/2023. FINDINGS: LOWER CHEST: The visualized lung bases are clear. LIVER: Normal in size and contour. Numerous tiny hypoattenuating lesions, suggesting cysts, too small to characterize. No suspicious focal lesion. BILIARY SYSTEM: No suspicious abnormalities. SPLEEN: Normal size. No focal lesion. PANCREAS: No mass, ductal dilation, or chris-pancreatic fluid. ADRENALS: Normal; no mass. KIDNEYS: Normal size and contour. No hydronephrosis. URINARY BLADDER: Unremarkable. GASTROINTESTINAL TRACT: No evidence of free air, significant intra-abdominal free fluid, bowel obstru ction or abscess. APPENDIX: Normal appendix. LYMPH NODES: No lymphadenopathy. MUSCULOSKELETAL: No acute or suspicious osseous abnormality. ADDITIONAL FINDINGS: None. IMPRESSION: No acute or concerning abnormalities seen in the abdomen or pelvis.
--- NOTE | 2024-10-20 22:37 | EDPHYS ---
Physician Documentation [facility] Name: Annalisa José Age: 79 yrs Sex: Female : 1945 Arrival Date: 10/20/2024 Time: 17:04 Bed 15 Private MD: ED Physician Garcia Gudino HPI: 10/20 17:33 This 79 yrs old Female presents to ER via Ambulatory with complaints of ec2 Headache, Vomiting, High Blood Pressure. 17:33 Patient arrives today for evaluation of a headache along with nausea and vomiting. ec2 Patient reports that she has been having headache along with nausea and vomiting throughout the day. Patient reports no fevers or chills, no cough or cold symptoms. Reports no significant history of headache syndromes, reports she has a history of hypertension, thyroid issues as well as possible early onset dementia.. Historical: - Allergies: 17:21 Morphine; aa5 17:21 PENICILLINS; aa5 - PMHx: 17:21 Hypertensive disorder; aa5 17:23 thyroid problem; Memory problem; aa5 - PSHx: 17:21 stomach/hernia SX; section; aa5 - Immunization history:: Adult Immunizations unknown. - Infectious Disease History:: Denies. - Social history:: Smoking status: Patient denies any tobacco usage or history of. ROS: 17:33 Constitutional: as per hpi ec2 Exam: 17:33 Constitutional: GEN: NAD Head: atraumatic Eyes: EOMI Ears: External ears are ec2 normal. CV: regular rate LUNGS: no respiratory distress ABD: non-distended SKIN: no evidence of rashes MSK: no evidence of trauma. Neuro: Cranial nerves II through XII, strength intact, sensation intact Vital Signs: 17:21 BP 148 / 97; Pulse 95; Resp 16 S; Pulse Ox 94% on R/A; aa5 20:12 BP 192 / 98; Pulse 89; Resp 18; Temp 98.2; Pulse Ox 98% on R/A; Pain 7/10; bm8 21:34 BP 129 / 79; Pulse 75; Resp 16; Temp 98.2; Pulse Ox 97% on R/A; Pain 0/10; bm8 22:53 BP 135 / 81; Pulse 60; Resp 18; Temp 98.2; Pulse Ox 99% ; Pain 0/10; bm8 20:12 Pain Scale: Adult bm8 21:34 Pain Scale: Adult bm8 22:53 Pain Scale: Adult bm8 Carline Coma Score: 20:12 Eye Response: spontaneous(4). Motor Response: obeys commands(6). Verbal Response: bm8 oriented(5). Total: 15. 21:34 Eye Response: spontaneous(4). Motor Response: obeys commands(6). Verbal Response: bm8 oriented(5). Total: 15. 22:53 Eye Response: spontaneous(4). Motor Response: obeys commands(6). Verbal Response: bm8 oriented(5). Total: 15. MDM: 17:21 Medical Screening Exam initiated ec2 17:33 Data reviewed: vital signs, nurses notes. ED course: Patient arrives due to concern for ec2 headache along with nausea and vomiting. Examination is revealing for well-appearing nontoxic hemodynamically stable individual with neuro intact status. Will obtain lab work, CT scan of the head. Differential includes headache syndrome, intracranial mass, doubt intracranial brain bleed, additionally considered electrolyte disturbances, dehydration.. 19:26 ED course: EKG independently reviewed and interpreted by me, shows normal sinus rhythm, ec2 rate of 87, no acute ST segment elevations, normals are nonactionable, PVCs noted.. 22:36 ED course: symptoms markedly improved, patient comfortable sitting on stretcher in exam cp room. will discharge to home for continued monitoring. 10/20 17:26 Order name: Basic Metabolic Panel; Complete Time: 19:51 ec2 10/20 22:32 Interpretation: Normal except: K 3.4; GLUC 137; GFR 88. cp 10/20 17:26 Order name: CBC with Diff; Complete Time: 20:38 ec2 10/20 22:32 Interpretation: Normal except: WBC 13.20; MPV 6.8; RADHA% 89.1; LYM% 7.7; MN% 2.5; NEUT A cp 11.8. 10/20 17:26 Order name: Troponin HS; Complete Time: 19:51 ec2 10/20 20:20 Order name: CBC Smear Scan; Complete Time: 20:38 EDMS 10/20 17:15 Order name: CT Head Brain wo Cont; Complete Time: 19:04 ec2 10/20 19:51 Order name: CT Abd/Pelvis - IV Contrast Only; Complete Time: 22:31 ec2 10/20 22:32 Interpretation: Report reviewed. cp 10/20 17:26 Order name: Cardiac monitoring; Complete Time: 20:16 ec2 10/20 17:26 Order name: EKG - Nurse/Tech; Complete Time: 20:16 ec2 10/20 17:26 Order name: IV Saline Lock; Complete Time: 20:16 ec2 10/20 17:26 Order name: Labs collected and sent; Complete Time: 20:16 ec2 10/20 17:26 Order name: O2 Per Protocol; Complete Time: 20:16 ec2 10/20 17:26 Order name: O2 Sat Monitoring; Complete Time: 20:16 ec2 Administered Medications: 20:16 Drug: NS 0.9% IV 250 ml IV at bolus once; to be given as a bolus over 30 minutes Route: bm8 IV; Rate: bolus; Site: right antecubital; 20:39 Follow up: Response: No adverse reaction; IV Status: Completed infusion; IV Intake: bm8 250ml 20:16 Drug: diphenhydrAMINE IVP 25 mg IVP once Route: IVP; Site: right antecubital; bm8 20:39 Follow up: Response: No adverse reaction bm8 20:16 Drug: metoCLOPramide IVP 10 mg IVP once; over 1 to 2 minutes Route: IVP; Site: right bm8 antecubital; 20:39 Follow up: Response: No adverse reaction bm8 Disposition Summary: 10/20/24 22:37 Discharge Ordered Notes: Location: Home cp Problem: new cp Symptoms: have improved cp Condition: Stable cp Diagnosis - Nausea with vomiting, unspecified cp - Headache cp Followup: cp - With: Private Physician - When: 2 - 3 days - Reason: Recheck today's complaints Discharge Instructions: - Discharge Summary Sheet cp - General Headache Without Cause cp - Nausea and Vomiting, Adult cp Forms: - Medication Reconciliation Form cp - Antibiotic Education cp - Prescription Opioid Use cp - Patient Portal Instructions cp - Leadership Thank You Letter cp Prescriptions: - Zofran 4 mg Oral Tablet - take 1 tablet ORAL route every 12 hours As needed; 20 tablet; Refills: 0, cp Product Selection Permitted Signatures: Dispatcher [employer] Judy Espinal RN RN aa5 Ross Brewster PA PA cp Corral, Edwin, MD MD ec2 Dayron Bruno, RN RN bm8 Corrections: (The following items were deleted from the chart) 17: 17: BASIC METABOLIC PANEL+C.LAB.BRZ ordered. EDMS EDMS 17: CBC+H.LAB.BRZ ordered. EDMS EDMS 17: Troponin High Sensitivity+C.LAB.BRZ ordered. EDMS EDMS
--- NOTE | 2024-10-20 22:37 | ER ---
Nurse's Notes [facility] Name: Annalisa José Age: 79 yrs Sex: Female : 1945 Arrival Date: 10/20/2024 Time: 17:04 Bed 15 Private MD: Diagnosis: Nausea with vomiting, unspecified;Headache Presentation: 10/20 17:21 Chief complaint: Patient states: high blood pressure at home "194/114", headache, and aa5 vomited twice today. Coronavirus screen: At this time, the client does not indicate any symptoms associated with coronavirus-19. Ebola Screen: Patient denies travel to an Ebola-affected area in the 21 days before illness onset. Initial Sepsis Screen: Does the patient meet any 2 criteria? HR > 90 bpm. Does the patient have a suspected source of infection? No. Patient's initial sepsis screen is negative. Risk Assessment: Do you want to hurt yourself or someone else? Patient reports no desire to harm self or others. Onset of symptoms was October 20, 2024. 17:21 Acuity: JOSE DAVID 3 aa5 17:21 Method Of Arrival: Ambulatory aa5 Historical: - Allergies: 17:21 Morphine; aa5 17:21 PENICILLINS; aa5 - PMHx: 17:21 Hypertensive disorder; aa5 17:23 thyroid problem; Memory problem; aa5 - PSHx: 17:21 stomach/hernia SX; section; aa5 - Immunization history:: Adult Immunizations unknown. - Infectious Disease History:: Denies. - Social history:: Smoking status: Patient denies any tobacco usage or history of. Screenin:12 [facility] ED Fall Risk Assessment (Adult) History of falling in the last 3 months, bm8 including since admission No falls in past 3 months (0 pts) Confusion or Disorientation No (0 pts) Intoxicated or Sedated No (0 pts) Impaired Gait No (0 pts) Mobility Assist Device Used No (0 pt) Altered Elimination No (0 pt) Score/Fall Risk Level 0 - 2 = Low Risk Oriented to surroundings, Maintained a safe environment, Educated pt \\T\\ family on fall prevention, incl call for assistance when getting out of bed, Assessed \\T\\ reinforced patient's understanding of fall precautions, Hourly rounding (assess needs \\T\\ fall precautionary measures) done, Used ambulatory aids as needed (educated on \\T\\ assisted with), Used gait belt as appropriate. Abuse screen: Denies threats or abuse. Nutritional screening: No deficits noted. Tuberculosis screening: No symptoms or risk factors identified. Assessment: 20:12 General: Appears in no apparent distress. uncomfortable, Behavior is calm, cooperative, bm8 appropriate for age. Pain: Complains of pain in head Pain currently is 7 out of 10 on a pain scale. Neuro: Level of Consciousness is awake, alert, obeys commands, Oriented to person, place, time, situation, Appropriate for age Class A Lineman are equal bilaterally Reports headache nausea. Cardiovascular: Denies chest pain, Capillary refill < 3 seconds in bilateral fingers Patient's skin is warm and dry. Respiratory: Airway is patent Trachea midline Respiratory effort is even, unlabored, Respiratory pattern is regular, symmetrical. GI: Pt is actively vomiting bile, scant amount, more dry heave Reports nausea, vomiting. : No signs and/or symptoms were reported regarding the genitourinary system. EENT: No signs and/or symptoms were reported regarding the EENT system. Derm: No signs and/or symptoms reported regarding the dermatologic system. Musculoskeletal: No signs and/or symptoms reported regarding the musculoskeletal system. 21:34 Reassessment: Patient appears in no apparent distress at this time. Patient and/or bm8 family updated on plan of care and expected duration. Pain level reassessed. Patient is alert, oriented x 3, equal unlabored respirations, skin warm/dry/pink. Patient denies pain at this time. Patient states feeling better. Patient states symptoms have improved. Neuro: Denies headache. GI: Patient currently denies nausea, pain, vomiting. 22:53 Reassessment: Patient appears in no apparent distress at this time. Patient and/or bm8 family updated on plan of care and expected duration. Pain level reassessed. Patient is alert, oriented x 3, equal unlabored respirations, skin warm/dry/pink. Patient denies pain at this time. Patient states feeling better. Patient states symptoms have improved. Vital Signs: 17:21 BP 148 / 97; Pulse 95; Resp 16 S; Pulse Ox 94% on R/A; aa5 20:12 BP 192 / 98; Pulse 89; Resp 18; Temp 98.2; Pulse Ox 98% on R/A; Pain 7/10; bm8 21:34 BP 129 / 79; Pulse 75; Resp 16; Temp 98.2; Pulse Ox 97% on R/A; Pain 0/10; bm8 22:53 BP 135 / 81; Pulse 60; Resp 18; Temp 98.2; Pulse Ox 99% ; Pain 0/10; bm8 20:12 Pain Scale: Adult bm8 21:34 Pain Scale: Adult bm8 22:53 Pain Scale: Adult bm8 Carline Coma Score: 20:12 Eye Response: spontaneous(4). Motor Response: obeys commands(6). Verbal Response: bm8 oriented(5). Total: 15. 21:34 Eye Response: spontaneous(4). Motor Response: obeys commands(6). Verbal Response: bm8 oriented(5). Total: 15. 22:53 Eye Response: spontaneous(4). Motor Response: obeys commands(6). Verbal Response: bm8 oriented(5). Total: 15. ED Course: 17:06 Patient arrived in ED. mg5 17:14 Garcia Gudino MD is Attending Physician. ec2 17:21 Arm band placed on. aa5 17:23 Triage completed. aa5 18:14 CT Head Brain wo Cont In Process Unspecified. EDMS 19:27 EKG done, by ED staff, reviewed by Garcia Gudino MD. oe 19:27 Inserted saline lock: 22 gauge in right antecubital area, using aseptic technique. oe Blood collected. Flushed with 10 mL NS. 20:03 Dayron Bruno, RN is Primary Nurse. bm8 20:12 Patient has correct armband on for positive identification. Bed in low position. Call bm8 light in reach. Side rails up X2. Adult w/ patient. Client placed on continuous cardiac and pulse oximetry monitoring. NIBP monitoring applied. Pulse ox on. NIBP on. Door closed. Noise minimized. Visitors limited. Lights dimmed. Warm blanket given. Pillow given. Verbal reassurance given. Head of bed elevated. 20:12 No provider procedures requiring assistance completed. Patient maintains SpO2 bm8 saturation greater than 95% on room air. 20:43 Ross Brewster PA is PHCP. cp 20:58 CT Abd/Pelvis - IV Contrast Only In Process Unspecified. EDMS 21:34 Provided Education on:. bm8 22:53 Provided Education on: post er care. bm8 22:53 IV discontinued, intact, bleeding controlled, No redness/swelling at site. Pressure bm8 dressing applied. Administered Medications: 20:16 Drug: NS 0.9% IV 250 ml IV at bolus once; to be given as a bolus over 30 minutes Route: bm8 IV; Rate: bolus; Site: right antecubital; 20:39 Follow up: Response: No adverse reaction; IV Status: Completed infusion; IV Intake: bm8 250ml 20:16 Drug: diphenhydrAMINE IVP 25 mg IVP once Route: IVP; Site: right antecubital; bm8 20:39 Follow up: Response: No adverse reaction bm8 20:16 Drug: metoCLOPramide IVP 10 mg IVP once; over 1 to 2 minutes Route: IVP; Site: right bm8 antecubital; 20:39 Follow up: Response: No adverse reaction bm8 Medication: 20:12 VIS not applicable for this client. bm8 Intake: 20:39 IV: 250ml; Total: 250ml. bm8 Outcome: 22:37 Discharge ordered by . cp 22:53 Discharged to home ambulatory, bm8 22:53 Condition: stable 22:53 Discharge instructions given to patient, family, Instructed on discharge instructions, follow up and referral plans. no drinking with medication, no driving heavy equipment, medication usage, safety practices, Demonstrated understanding of instructions, follow-up care, medications, Prescriptions given X 1, 22:54 Patient left the ED. bm8 Signatures: Dispatcher [employer] Judy Espinal, RN RN aa5 Ross Brewster PA PA Nino Bernard Madison mg5 Garcia Gudino MD MD ec2 Dayron Bruno RN RN bm8
[2024-10-21 02:46] VITALS: TEMP 98.2
[2024-10-21 02:54] VITALS: BP 135/81; O2SAT 99
== END 2024-10-20 22:54 | disposition home or self-care (01) ==
LOC: ER 17:04
DX: R11.2 Nausea with vomiting, unspecified (principal); R51.9 Headache, unspecified; I10 Essential (primary) hypertension
CPT/HCPCS: 85025; 80048; 36415; 84484; 70450; 74177; 96375; 96374; 99284; Q9967; J2765; J1200; J7050

== ENCOUNTER 2025-03-16 15:07 | Emergency (ER) | payer OTHER ==
[2025-03-16 15:41] LABS: Absolute Basophils 0.1 K/uL (0-0.5); Absolute Eosinophils 0.1 K/uL (0-0.5); Absolute Lymphocytes (CBC) 1.7 K/uL (0.7-4.9); Absolute Monocytes 0.5 K/uL (0.1-1.3); Absolute Neutrophil 9.5 K/uL (1.8-8.0); Basophils % 0.7 % (0-1.3); Eosinophils % 0.5 % (0-4.4); Hematocrit 39.4 % (36.0-45.0); Hemoglobin 13.5 g/dL (12.0-15.0); Lymphocytes % 14.2 % (15.3-44.8); MCH 30.7 pg (27.0-35.0); MCHC 34.3 g/dL (32.0-36.0); MCV 89.5 fL (80-100); MPV 6.9 fL (7.6-11.3); Monocytes % 4.1 % (3.3-12.3); Neutrophils % 80.5 % (41.7-73.7); Nucleated Red Blood Cells % 0.1 % (0-0); Platelets 392 thou/uL (152-406)
[2025-03-16 15:48] LABS: Specific Gravity 1.015 (1.005-1.030); Sqamous Epithelial <5 /HPF (None Seen); Urine Bacteria None Seen /HPF (<20); Urine Bilirubin NEGATIVE (Negative); Urine Blood Negative (Negative); Urine Clarity Extremely Turbid (Clear); Urine Color Light-Yellow (Yellow); Urine Culture Reflex Order NOT NEEDED; Urine Glucose NEGATIVE (Negative); Urine Ketones NEGATIVE (Negative); Urine Microscopic Reflex YN ORDER UMIC; Urine Mucus Slight /HPF (None Seen); Urine Nitrite NEGATIVE (Negative); Urine Protein TRACE (Negative); Urine RBC <5 /HPF (None Seen); Urine Urobilinogen Normal (Normal); Urine WBC <5 /HPF (<5); Urine pH 6.5 (5.0-7.0)
[2025-03-16 16:00] LABS: ALT/SGPT 20 U/L (13-56); AST/SGOT < 10 U/L (15-37); Albumin 3.8 g/dL (3.4-5.0); Alkaline Phosphatase 89 U/L (45-117); Anion Gap 9.4 mEq/L (5.0-15.0); BUN Blood Urea Nitrogen 19 mg/dL (7-18); Bicarbonate 27 mEq/L (21-32); Bilirubin Total 0.5 mg/dL (0.2-1.0); Globulin 3.7 g/dL (2.3-3.5); Glomerular Filtration Rate 51 ml/min (=/>90); Glucose Level 120 mg/dL (74-106); Lipase 30 U/L (13-75); Potassium 3.4 mEq/L (3.5-5.1); Protein, Total 7.5 g/dL (6.4-8.2); Sodium Level 138 mEq/L (136-145)
[2025-03-16] MEDS ORDERED: ONDANSETRON 4 MG/2 ML VIAL ONE (16:00)
[2025-03-16] MEDS ORDERED: NA CHLORIDE 0.9% 1,000 ML ONE (16:00)
[2025-03-16] MEDS ORDERED: ACETAMINOPHEN 325 MG TABLET ONE (16:43)
[2025-03-16] MEDS ORDERED: KETOROLAC 30 MG/ML INJ ONE (18:28)
--- NOTE | 2025-03-16 18:40 | RAD REPORT ---
EXAMINATION: CT Abdomen Pelvis W Contrast CLINICAL INDICATION: Female, 79 years old. ABD PAIN TECHNIQUE: CT abdomen and pelvis was performed, after the administration of IV contrast, as per [facility] protocol. Axial, sagittal and coronal reconstructions were obtained. One or more of the following dose reduction techniques were used: Automated exposure control, adjustment of the mA and k V according to patient size, and iterative reconstruction. Unless otherwise specified, incidental findings do not require dedicated imaging follow-up. COMPARISON: 10/20/2024 FINDINGS: LOWER CHEST: The visualized lung bases are clear. LIVER: Normal in size and contour. No focal lesion. BILIARY SYSTEM: No suspicious abnormalities. SPLEEN: Normal size. No focal lesion. PANCREAS: No mass, ductal dilation, or chris-pancreatic fluid. ADRENALS: Normal; no mass. KIDNEYS: Normal size and contour. No hydronephrosis. URINARY BLADDER: Unremarkable. GASTROINTESTINAL TRACT: No evidence of free air, significant intra-abdominal free fluid, bowel obstru ction or abscess. Few colonic diverticula without evidence of acute diverticulitis APPENDIX: Appendix not seen, probably surgically absent. LYMPH NODES: No lymphadenopathy. MUSCULOSKELETAL: No acute or suspicious osseous abnormality. ADDITIONAL FINDINGS: None. IMPRESSION: No acute or concerning abnormalities seen in the abdomen or pelvis.
[2025-03-16] MEDS ORDERED: dexAMETHasone 10 MG/ML VIAL ONE (18:53)
[2025-03-16] MEDS ORDERED: DIPHENHYDRAMINE 50 MG/ML VIAL ONE (18:54)
[2025-03-16] MEDS ORDERED: METOCLOPRAMIDE 10 MG/2mL INJ ONE (18:54)
--- NOTE | 2025-03-16 19:30 | EDPHYS ---
Physician Documentation [facility] Name: Annalisa José Age: 79 yrs Sex: Female : 1945 Arrival Date: 03/16/2025 Time: 15:07 Bed 15 Private MD: ED Physician Adalberto Samaniego HPI: 03/16 15:20 This 79 yrs old Female presents to ER via Unassigned with complaints of kb Nausea/Vomiting. 15:20 Patient is a 79-year-old female who presents for nausea vomiting and diarrhea that kb started last night. States she has had continued nausea today and a headache. Denies diarrhea or vomiting today has been tolerating p.o. fluids. Denies abdominal pain or fever.. Historical: - Allergies: 15:21 Morphine; ld1 15:21 PENICILLINS; ld1 - PMHx: 15:21 Hypertensive disorder; memory problem; Thyroid problem; ld1 - PSHx: 15:21 section; stomach/hernia SX; ld1 - Immunization history:: Adult Immunizations up to date. - Infectious Disease History:: Denies. - Social history:: Smoking status: Patient denies any tobacco usage or history of. ROS: 15:19 Constitutional: As per HPI kb Exam: 15:19 Constitutional: This is a well developed, well nourished patient who is awake, alert, kb and in no acute distress. Head/Face: Normocephalic, atraumatic. ENT: Moist Mucous membranes Cardiovascular: Regular rate Respiratory: Respirations even and unlabored. No increased work of breathing. Talking in full sentences Abdomen/GI: Soft, non-tender. No distention Skin: Warm, dry with normal turgor. Normal color. MS/ Extremity: Pulses equal, no cyanosis. Neurovascular intact. Full, normal range of motion. Neuro: Awake and alert, GCS 15, oriented to person, place, time, and situation. Vital Signs: 15:20 BP 140 / 97; Pulse 87; Resp 18; Temp 97.5(TE); Pulse Ox 97% on R/A; Weight 56.25 kg; ld1 Height 5 ft. 3 in. ; Pain 0/10; 16:00 BP 161 / 79; Pulse 68; Resp 20; Pulse Ox 95% ; kj2 17:00 BP 164 / 76; Pulse 64; Resp 20; Pulse Ox 100% on R/A; kj2 18:00 BP 158 / 78; Pulse 66; Resp 18; Pulse Ox 100% on R/A; kj2 19:33 BP 118 / 79; Pulse 62; Resp 18; Temp 97.9; Pulse Ox 100% on R/A; kj2 15:20 Body Mass Index 21.97 (56.25 kg, 160.02 cm) ld1 15:20 Pain Scale: Adult ld1 MDM: 15:15 Medical Screening Exam initiated kb 19:28 Differential diagnosis: Nonspecific abd pain, viral gastroenteritis, dehydration. Data kb reviewed: vital signs, nurses notes. Historians other than the Patient: Daughter/Son: daughter in law. Counseling: I had a detailed discussion with the patient and/or guardian regarding the historical points, exam findings, and any diagnostic results supporting the discharge/admit diagnosis, lab results, radiology results, the need for outpatient follow up, a family practitioner, to return to the emergency department if symptoms worsen or persist or if there are any questions or concerns that arise at home. ED course: Pt states her nausea has improved, tolerating po intake. States she is ready to go home. 03/16 15:15 Order name: CBC with Diff; Complete Time: 15:44 kb 03/16 15:15 Order name: CMP; Complete Time: 16:04 kb 03/16 15:15 Order name: Lipase; Complete Time: 16:04 kb 03/16 15:15 Order name: Urinalysis w/ reflexes; Complete Time: 15:50 kb 03/16 15:15 Order name: CT Abd/Pelvis - IV Contrast Only; Complete Time: 18:41 kb 03/16 15:15 Order name: IV Saline Lock; Complete Time: 15:36 kb 03/16 15:15 Order name: Labs collected and sent; Complete Time: 15:36 kb Administered Medications: 16:19 Drug: Ondansetron IVP 4 mg IVP once; over 2 minutes Route: IVP; Site: right hand; kj2 19:49 Follow up: Response: No adverse reaction kj2 16:19 Drug: NS 0.9% IV 1000 ml IV at 1 bolus Per protocol; to be given as a bolus over 60 kj2 minutes Route: IV; Rate: 1 bolus; Site: right hand; 19:49 Follow up: IV Status: Completed infusion; IV Intake: 1000ml kj2 16:51 Drug: Acetaminophen PO 650 mg PO once Route: PO; kj2 19:35 Follow up: Response: No adverse reaction kj2 18:38 Drug: Ketorolac IVP 15 mg IVP once Route: IVP; Site: right wrist; iw 19:35 Follow up: Response: No adverse reaction kj2 19:00 Drug: metoCLOPramide IVP 10 mg IVP once; over 1 to 2 minutes Route: IVP; Site: left kj2 hand; 19:35 Follow up: Response: No adverse reaction kj2 19:00 Drug: diphenhydrAMINE IVP 25 mg IVP once Route: IVP; Site: right hand; kj2 19:35 Follow up: Response: No adverse reaction kj2 19:00 Drug: Decadron - Dexamethasone IVP 10 mg IVP once Route: IVP; Site: right hand; kj2 19:35 Follow up: Response: No adverse reaction kj2 Disposition: 03/17 16:11 Co-signature as Attending Physician, Adalberto Samaniego MD I reviewed the patient's care rn provided by the Advanced Practice Provider and agree with the diagnosis and treatment plan. Disposition Summary: 03/16/25 19:30 Discharge Ordered Notes: Location: Home kb Condition: Stable kb Diagnosis - Nausea with vomiting, unspecified kb Followup: kb - With: Emergency Department - When: As needed - Reason: Worsening of condition Followup: kb - With: Private Physician - When: 2 - 3 days - Reason: Recheck today's complaints, Continuance of care, Re-evaluation by your physician Discharge Instructions: - Discharge Summary Sheet kb - Nausea and Vomiting, Adult, Kker-ys-Lvib kb Forms: - Medication Reconciliation Form kb - Antibiotic Education kb - Prescription Opioid Use kb - Patient Portal Instructions kb - Leadership Thank You Letter kb Prescriptions: - ondansetron 4 mg Oral Tablet,disintegrating - take 1 tablet ORAL route every 6 hours As needed; 12 tablet; Refills: 0, kb Product Selection Permitted Signatures: Dispatcher [employer] Lisa Pacheco FNP-C FNP-Christie Stout, RN Adalberto Collins MD MD rn Sims, Lauren, RN RN ld1 Shannon Mortensen RN RN kj2
--- NOTE | 2025-03-16 19:30 | ER ---
Nurse's Notes [facility] Name: Annalisa José Age: 79 yrs Sex: Female : 1945 Arrival Date: 03/16/2025 Time: 15:07 Bed 15 Private MD: Diagnosis: Nausea with vomiting, unspecified Presentation: 03/16 15:20 Chief complaint: Patient states: N/V/D, headache since last night. Coronavirus screen: ld1 At this time, the client does not indicate any symptoms associated with coronavirus-19. Ebola Screen: No symptoms or risks identified at this time. Initial Sepsis Screen: Does the patient meet any 2 criteria? No. Patient's initial sepsis screen is negative. Does the patient have a suspected source of infection? No. Patient's initial sepsis screen is negative. Risk Assessment: Do you want to hurt yourself or someone else? Patient reports no desire to harm self or others. Onset of symptoms was March 16, 2025. 15:20 Method Of Arrival: Ambulatory ld1 15:20 Method Of Arrival: Ambulatory ld1 15:20 Acuity: JOSE DAVID 3 ld1 Triage Assessment: 15:21 General: Appears in no apparent distress. comfortable, Behavior is calm, cooperative, ld1 appropriate for age. Pain: Denies pain. EENT: No signs and/or symptoms were reported regarding the EENT system. Neuro: Level of Consciousness is awake, alert, obeys commands, Oriented to person, place, time, situation, Appropriate for age. Cardiovascular: Capillary refill < 3 seconds Patient's skin is warm and dry. Respiratory: Airway is patent Respiratory effort is even, unlabored. GI: Abdomen is round non-distended, Reports diarrhea, nausea, vomiting. : No signs and/or symptoms were reported regarding the genitourinary system. Derm: No signs and/or symptoms reported regarding the dermatologic system. Musculoskeletal: No signs and/or symptoms reported regarding the musculoskeletal system. Historical: - Allergies: 15:21 Morphine; ld1 15:21 PENICILLINS; ld1 - PMHx: 15:21 Hypertensive disorder; memory problem; Thyroid problem; ld1 - PSHx: 15:21 section; stomach/hernia SX; ld1 - Immunization history:: Adult Immunizations up to date. - Infectious Disease History:: Denies. - Social history:: Smoking status: Patient denies any tobacco usage or history of. Screenin:00 [facility] ED Fall Risk Assessment (Adult) History of falling in the last 3 months, kj2 including since admission No falls in past 3 months (0 pts) Confusion or Disorientation No (0 pts) Intoxicated or Sedated No (0 pts) Impaired Gait No (0 pts) Mobility Assist Device Used No (0 pt) Altered Elimination No (0 pt) Score/Fall Risk Level 0 - 2 = Low Risk Maintained a safe environment, Hourly rounding (assess needs \T\ fall precautionary measures) done. Abuse screen: Denies threats or abuse. Denies injuries from another. Nutritional screening: No deficits noted. Tuberculosis screening: No symptoms or risk factors identified. Assessment: 16:00 General: Appears in no apparent distress. Behavior is cooperative. Pain:. Neuro: Level kj2 of Consciousness is awake, alert, obeys commands, Oriented to person, place, time, situation. Cardiovascular: Patient's skin is warm and dry. Respiratory: Airway is patent Respiratory effort is even, unlabored. GI: : No signs and/or symptoms were reported regarding the genitourinary system. 17:00 Reassessment: Patient appears in no apparent distress at this time. Patient and/or kj2 family updated on plan of care and expected duration. Pain level reassessed. Patient is alert, oriented x 3, equal unlabored respirations, skin warm/dry/pink. 18:41 Reassessment: Patient appears in no apparent distress at this time. Patient and/or iw family updated on plan of care and expected duration. Pain level reassessed. Patient is alert, oriented x 3, equal unlabored respirations, skin warm/dry/pink. pt c/o continuing headache and nausea. 19:32 Reassessment: Patient appears in no apparent distress at this time. Patient and/or kj2 family updated on plan of care and expected duration. Pain level reassessed. Patient is alert, oriented x 3, equal unlabored respirations, skin warm/dry/pink. Vital Signs: 15:20 BP 140 / 97; Pulse 87; Resp 18; Temp 97.5(TE); Pulse Ox 97% on R/A; Weight 56.25 kg; ld1 Height 5 ft. 3 in. ; Pain 0/10; 16:00 BP 161 / 79; Pulse 68; Resp 20; Pulse Ox 95% ; kj2 17:00 BP 164 / 76; Pulse 64; Resp 20; Pulse Ox 100% on R/A; kj2 18:00 BP 158 / 78; Pulse 66; Resp 18; Pulse Ox 100% on R/A; kj2 19:33 BP 118 / 79; Pulse 62; Resp 18; Temp 97.9; Pulse Ox 100% on R/A; kj2 15:20 Body Mass Index 21.97 (56.25 kg, 160.02 cm) ld1 15:20 Pain Scale: Adult ld1 ED Course: 15:11 Patient arrived in ED. al6 15:14 Lisa Emery FNP-C [facility]. kb 15:15 Adalberto Samaniego MD is Attending Physician. kb 15:21 Triage completed. ld1 15:21 Arm band placed on right wrist. ld1 15:36 Urinalysis w/ reflexes Sent. ld1 15:36 No provider procedures requiring assistance completed. Inserted saline lock: 20 gauge ld1 in right antecubital area, using aseptic technique. Blood collected. Flushed with 10 mL NS. 15:53 Shannon Mortensen, RN is Primary Nurse. kj2 16:00 Patient has correct armband on for positive identification. Bed in low position. Call kj2 light in reach. Adult w/ patient. Provided Education on: call light. 17:06 CT Abd/Pelvis - IV Contrast Only In Process Unspecified. EDMS 19:35 IV discontinued, intact, bleeding controlled, No redness/swelling at site. Pressure kj2 dressing applied. Administered Medications: 16:19 Drug: Ondansetron IVP 4 mg IVP once; over 2 minutes Route: IVP; Site: right hand; kj2 19:49 Follow up: Response: No adverse reaction kj2 16:19 Drug: NS 0.9% IV 1000 ml IV at 1 bolus Per protocol; to be given as a bolus over 60 kj2 minutes Route: IV; Rate: 1 bolus; Site: right hand; 19:49 Follow up: IV Status: Completed infusion; IV Intake: 1000ml kj2 16:51 Drug: Acetaminophen PO 650 mg PO once Route: PO; kj2 19:35 Follow up: Response: No adverse reaction kj2 18:38 Drug: Ketorolac IVP 15 mg IVP once Route: IVP; Site: right wrist; iw 19:35 Follow up: Response: No adverse reaction kj2 19:00 Drug: metoCLOPramide IVP 10 mg IVP once; over 1 to 2 minutes Route: IVP; Site: left kj2 hand; 19:35 Follow up: Response: No adverse reaction kj2 19:00 Drug: diphenhydrAMINE IVP 25 mg IVP once Route: IVP; Site: right hand; kj2 19:35 Follow up: Response: No adverse reaction kj2 19:00 Drug: Decadron - Dexamethasone IVP 10 mg IVP once Route: IVP; Site: right hand; kj2 19:35 Follow up: Response: No adverse reaction kj2 Medication: 16:34 VIS not applicable for this client. kj2 Intake: 19:49 IV: 1000ml; Total: 1000ml. kj2 Outcome: 19:30 Discharge ordered by MD. kb 19:34 Discharged to home ambulatory, with family, kj2 19:34 Condition: stable 19:34 Discharge instructions given to patient, family, Instructed on discharge instructions, follow up and referral plans. Demonstrated understanding of instructions, follow-up care, 19:49 Patient left the ED. kj2 Signatures: Dispatcher [employer] Lisa Pacheco, JAIRO BARRYP-Christie Stout RN RN iw She Meraz RN RN ld1 Shannon Mortensen RN RN kj2 Milly Quiles6
[2025-03-17 20:54] VITALS: O2SAT 100
[2025-03-17 20:58] VITALS: BP 118/79; TEMP 97.9
== END 2025-03-16 19:49 | disposition home or self-care (01) ==
LOC: ER 15:07
DX: R11.2 Nausea with vomiting, unspecified (principal); R19.7 Diarrhea, unspecified; R51.9 Headache, unspecified; I10 Essential (primary) hypertension
CPT/HCPCS: 85025; 81001; 36415; 83690; 80053; 74177; 99284; Q9967; J2765; J1200; J1100; J2405; J7030